=== PATIENT | female | born 1940 | race Caucasian/White ===

== ENCOUNTER → 2020-02-04 | Outpatient (CLI) | payer MEDICARE ==
--- NOTE | 2020-02-04 15:35 | P.PCN ---
Date of Procedure: 02/04/20 Preoperative Diagnosis: painful nodularity right chest wall Postoperative Diagnosis: Same Procedure(s) Performed: FNA right chest wall Surgeon: Dionne Contreras Pathology: other (Cytology) Condition: stable Disposition: same day Indications for Procedure: Nodularity right chest wall not seen on mammogram or ultrasound Operative Findings: Fibrofatty tissue Description of Procedure: Ana Maria is an 79 year old white female area of increased nodularity and pain in her right breast several months ago. On examination there was an increased area of palpable nodularity however no no discrete dominant large mass. Ultrasound of the area and a mammogram did not show any specific lesions of concern. Therefore an FNA is recommended to be performed. The risks and benefits described to the patient and she wished to proceed. The area was prepped using alcohol. 22-gauge needle on a 12 mL syringe was utilized to obtain the specimen. The needle was inserted into the area of concern in negative pressure was applied to the syringe. Several passes were obtained. The specimen was sent to pathology. The patient will follow up next week. The plan is if this is nondiagnostic related resect the palpable change in the operating room. Patient and her daughter understand.
--- NOTE | 2020-02-05 09:44 | MM ---
Reason for exam: clinical finding. History: Patient is postmenopausal. Family history of breast cancer in sister at age 54. Indicated problem(s): lump or thickening in the right breast. Physical Findings: Breast exam performed by Dr. Contreras. MG 3D Diag Mammo W/Cad ONI Bilateral CC and MLO view(s) were taken. There are scattered fibroglandular densities. Finding: There is a typically benign 4 mm high density mass in the upper outer quadrant of the right breast consistent with probable node. These results were verbally communicated with the patient and result sheet given to the patient on 02/04/20. ASSESSMENT: Probably benign, BI-RAD 3 RECOMMENDATION: Follow-up diagnostic mammogram of the right breast in 6 months.
--- NOTE | 2020-02-05 09:45 | USB ---
Reason for exam: clinical finding. History: Patient is postmenopausal. Family history of breast cancer in sister at age 54. US Breast RT Right complete breast ultrasound includes all four quadrants, the retroareolar region and axilla. Finding demonstrates a 0.3 x 0.3 x 0.1cm hypoechoic lesion at 7 o'clock, a 0.4 x 0.3 x 0.2cm hypoechoic lesion at 7 o'clock and a 0.7 x 0.6 x 0.4cm cystic lesion at 8 o'clock. These results were verbally communicated with the patient and result sheet given to the patient on 02/04/20. ASSESSMENT: Probably benign, BI-RAD 3 RECOMMENDATION: Ultrasound of the right breast in 6 months.
== END | disposition home or self-care (01) ==
LOC: RADMAMWWP 13:44
PROVIDERS: ATTEND Surgery
DX: N64.4 Mastodynia (principal); N63.11 Unspecified lump in the right breast, upper outer quadrant
CPT/HCPCS: 77066; 76641; G0279; 77062

== ENCOUNTER → 2020-02-04 | Outpatient (CLI) | payer MEDICARE ==
[2020-02-04 13:19] VITALS: BP 127/68; PULSE 75; RESP 20; TEMP 97.7
--- NOTE | 2020-02-04 13:32 | P.GSHP ---
History of Present Illness H&P Date: 02/04/20 Chief Complaint: lump in her right breast Ana Maria is an 79 year old white female who noted a lump in her right breast several months ago. She is seen in consultation for Dr. Gomez. She has not had a mammogram for several years. The lump has not increased in size. It is painful with any palpation or laying on it. She is uncertain as to whether it is on the chest wall or in the breast. Family history: sister: breast cancer Hormonal History: menarche: 13 breast fed: yes, age at first : 15 menopause: 48 BCP: 2 years hormones: none Surgical history: 1. appy 2. back surgery/sciatic nerve Medical History: 1. back pain 2. hard of hearing Social History: smoke: 1/PPD 60 years alcohol: not now, used to drink every week end drugs: none - Constitutional Constitutional: Denies chills, Denies fever - EENT Eyes: bilateral blurred vision Ears: bilateral: decreased hearing Ears, nose, mouth and throat: Denies headache, Denies sore throat - Breasts Breasts: bilateral: as per HPI - Cardiovascular Comment: ? CT/CVA Cardiovascular: Reports chest pain, Reports high blood pressure - Respiratory Comment: smoker - Gastrointestinal Gastrointestinal: Denies abdominal pain, Denies diarrhea, Denies nausea, Denies vomiting - Genitourinary (Female) Genitourinary: Denies dysuria, Denies hematuria - Menstruation Menstruation: Reports postmenopausal - Musculoskeletal Comment: back pain - Integumentary Integumentary: Denies pruritus, Denies rash - Neurological Comment: ?CVA, numbness in her feet Neurological: Denies numbness, Denies weakness - Psychiatric Psychiatric: Reports anxiety - Endocrine Endocrine: Reports fatigue, Denies weight change - Hematologic/Lymphatic Hematologic/Lymphatic: Reports as per HPI - Allergic/Immunologic Allergic/Immunologic: Reports seasonal allergies Medications and Allergies Allergies Allergy/AdvReac Type Severity Reaction Status Date / Time No Known Allergies Allergy Unverified 02/04/20 13:09 Surgical - Exam BMI 23.4 - General well developed, well nourished, no distress - Eyes normal ocular movement - ENT decreased hearing - Neck trachea midline - Respiratory normal respiratory effort, clear to auscultation - Cardiovascular Heart Sounds: normal: S1, S2 - Abdomen Well-healed scars abdomen with a subcostal scar in the left upper quadrant Abdomen: soft, non tender, no guarding, no rigid, no rebound - Integumentary normal turgor - Neurologic no disoriented, no combative - Musculoskeletal normal gait - Psychiatric oriented to time, oriented to person, oriented to place, speech is normal, memory intact breast exam: BRA: 38D inspection: Asymmetry of the breast right breast larger than the left breast, bilateral ptosis grade 3 Palpation: Right breast and multiple positional exam fibrocystic changes from the area of the upper outer quadrant but on the chest wall there is a approximately 1 cm area of increased nodularity which is tender to palpation Right axilla: Shoddy adenopathy Left breast: Multi-positional exam fibrocystic changes Left axilla: No adenopathy of concern Assessment and Plan Assessment: Impression: 1. Fibrocystic breast changes 2. Family history of breast cancer 3. Recent right chest wall/breast nodularity which is painful 4. Questionable status post CT and CVA 5. Degenerative joint/disc disease 6. Probable increased nodularity upper outer quadrant/chest wall right side 7. Decreased hearing Plan: 1. Bilateral mammogram and right breast ultrasound of the area for which patient is concerned 2. Operative removal of palpable change in right breast chest wall after mammogram and ultrasound if nothing is seen which will allow a core biopsy CC: Marquise Gomez encounter 40 minutes, > 50% of time in planning and counselling
== END | disposition home or self-care (01) ==
LOC: WWCWWP 12:59
PROVIDERS: ATTEND Surgery
DX: N63.10 Unspecified lump in the right breast, unspecified quadrant (principal)
CPT/HCPCS: 88173

== ENCOUNTER → 2020-02-09 | Outpatient (CLI) | payer MEDICARE ==
[2020-02-09 12:32] VITALS: BP 126/76; PULSE 78; RESP 16; TEMP 97.6
--- NOTE | 2020-02-09 13:27 | P.PN ---
Progress Note - Text Progress Note Date: 02/09/20 Radha is an 79 year old white female seen on 02-04-20 regarding a small nodule on her right chest wall. This was noted several months agol She had a recent mammogram and ultrasound which did not reveal anything specific on the ultrasound there was a 0.3 x 0.3 cm lesion at 7:00. And a 0.7 x 0.6 cystic lesion at 8:00. This was probably benign BIRADS 3 and ultrasound of the right breast in 6 months was recommended. The patient had an FNA of the area performed on . This was scant tissue virtually acellular additional some blood cells and adipose tissue. The patient continues to feel some slight nodularity in her chest wall that she states it is less tender than before. She tolerated the FNA without difficulty. Physical exam: Mild ecchymosis or right chest wall near area of FNA no evidence of infection Impression: 1. Small nodularity right chest wall appears cystic in nature does not appear suspicious, this is going to be followed clinically if it is persistent and will be removed after her next visit 2. Recent chest x-ray there is a fibrotic changes seen. Developing infiltrate would be difficult at the left lateral base to identify. Correlate clinically. Plan: 1. Repeat evaluation in 2 months time 2. If there is any change in the area of nodularity she should call us sooner 3. Probable excision in the operating room if the area remains persistent 4. Follow up with Dr. Gomez regarding chest x-ray changes 5. patient encouraged to stop smoking Cc: Dr. Gomez encounter 10 minutes, > 50% of time in planning and counselling
== END | disposition home or self-care (01) ==
LOC: WWCWWP 12:04
PROVIDERS: ATTEND Surgery
DX: Z53.9 Procedure and treatment not carried out, unspecified reason (principal)

== ENCOUNTER → 2020-02-09 | Outpatient (CLI) | payer MEDICARE ==
--- NOTE | 2020-02-09 13:07 | XR ---
EXAMINATION TYPE: XR chest 2V DATE OF EXAM: 02/09/2020 COMPARISON: NONE HISTORY: Shortness of breath TECHNIQUE: Frontal and lateral views of the chest are obtained. FINDINGS: Scattered senescent parenchymal changes noted. Hyperinflation compatible with COPD. Basilar fibrotic changes seen. Developing infiltrate would be difficult at the left lateral lung base . Correlate clinically. Heart size is stable. Mediastinal structures are stable and grossly unremarkable. No evidence for hilar prominence. Degenerative changes dorsal spine. IMPRESSION: 1. Basilar fibrotic changes seen. Developing infiltrate would be difficult at the left lateral lung b ase. Correlate clinically.
== END | disposition home or self-care (01) ==
LOC: RADXRMAIN 12:39
PROVIDERS: ATTEND Surgery
DX: Z53.9 Procedure and treatment not carried out, unspecified reason (principal)

== ENCOUNTER 2021-02-21 09:55 | Inpatient (IN) | payer MEDICARE ==
--- NOTE | 2021-02-21 10:26 | ED ---
General Adult HPI - General Chief complaint: Weakness Stated complaint: Fluid around heart Time Seen by Provider: 02/21/21 10:01 Source: patient Mode of arrival: wheelchair Limitations: no limitations - History of Present Illness Initial comments: Dictation was produced using [employer] dictation software. please excuse any grammatical, word or spelling errors. Chief Complaint: 80-year-old female sent to the emergency department for abn ormal echocardiogram History of Present Illness: 80-year-old female she is accompanied by a family member was able to provide history of present illness. Patient has history of cancer with metastatic disease. She had an echocardiogram performed approximately one month ago. Family just got the results that there is fluid around the heart. I did speak with literacy tutor who read the echocardiogram, Dr. Murillo. He called to let us know that he was sending in patient for evaluation. Echocardiogram from a month ago suggested that patient had signs of large pericardial effusion with perhaps mild tamponade. Patient has been feeling weak for the last several weeks. She denies any fever. She does have back pain that she reports is chronic to her lower back. The ROS documented in this emergency department record has been reviewed and confirmed by me. Those systems with pertinent positive or negative responses have been documented in the HPI. All other systems are other negative and/or noncontributory. PHYSICAL EXAM: General Impression: Alert and oriented x3, not in acute distress HEENT: Normocephalic atraumatic, extra-ocular movements intact, pupils equal and reactive to light bilaterally, mucous membranes moist. Cardiovascular: Heart regular rate and rhythm Chest: Able to complete full sentences, no retractions, no tachypnea, clear to auscultation bilaterally Abdomen: abdomen soft, non-tender, non-distended, no organomegaly Musculoskeletal: Pulses present and equal in all extremities, no peripheral edema Motor: no focal deficits noted Neurological: CN II-XII grossly intact, no focal motor or sensory deficits noted Skin: Intact with no visualized rashes Psych: Normal affect and mood ED course: 80-year-old female presents to the emergency department for abnormal echocardiogram performed 1 month ago. Allegedly there was findings of pericardial effusion with suppose it findings to suggest cardiac tamponade. Vital signs upon arrival are within acceptable limits. Patient was mildly hypoxic with 89% put on 2 L nasal cannula. Patient does not clinically this show any signs suggestive of cardiac tamponade. She has normal blood pressure. She does not appear to be in any acute distress. Furthermore this echocardiogram was allegedly performed 1 month ago. EKG interpretation: Ventricular rate 70, sinus rhythm, IA interval 110, QRS 70, QTC 419. No IA prolongation, no QTC prolongation, no ST or T-wave changes noted. Electrical alternans. Laboratory evaluation obtained. CBC, coag panel, metabolic panel is within acceptable limits. Troponin is 0.021 Chest x-ray shows moderate to severe chronic pulmonary fibrotic changes which are more prominent from prior. There is cardiomegaly with suggestion of interstitial edema. Dizziness small right pleural effusion. Concern for underlying mass. Results were discussed with patient's family member at the bedside. They know about these results and her trying to get these addressed on a more timely basis. Patient states that she feels baseline currently. Family is agreeable with admission with consultation to oncology, cardiothoracic surgery and pulmonology. Echocardiogram is ordered pending interpretation. - Related Data Home Medications Medication Instructions Recorded Confirmed Aspirin 81 mg PO QAM 02/04/20 02/21/21 Atorvastatin [Lipitor] 40 mg PO DAILY 02/04/20 02/21/21 Metoprolol Succinate [Toprol XL] 50 mg PO QAM 02/04/20 02/21/21 Albuterol Inhaler [Ventolin Hfa 1 - 2 puff INHALATION RT-QID PRN 02/21/21 02/21/21 Inhaler] Escitalopram [Lexapro] 5 mg PO DAILY 02/21/21 02/21/21 Furosemide [Lasix] 20 mg PO DAILY 02/21/21 02/21/21 Allergies Allergy/AdvReac Type Severity Reaction Status Date / Time No Known Allergies Allergy Verified 02/21/21 11:16 Review of Systems ROS Statement: Those systems with pertinent positive or pertinent negative responses have been documented in the HPI. ROS Other: All systems not noted in ROS Statement are negative. Past Medical History Additional Past Medical History / Comment(s): back pain; hard of hearing; History of Any Multi-Drug Resistant Organisms: None Reported Past Surgical History: Appendectomy Additional Past Surgical History / Comment(s): sciatic nerve surgery Past Anesthesia/Blood Transfusion Reactions: No Reported Reaction Past Psychological History: No Psychological Hx Reported Smoking Status: Former smoker Past Alcohol Use History: None Reported Past Drug Use History: None Reported General Exam Limitations: no limitations Course Vital Signs 02/21/21 02/21/21 02/21/21 09:56 10:14 10:19 Temperature 97.9 F Pulse Rate 67 102 H Pulse Rate [ Corrective Therapy Aide Teacher ] Respiratory 18 20 Rate Blood Pressure 114/71 141/78 O2 Sat by Pulse 93 L 97 98 Oximetry 02/21/21 02/21/21 02/21/21 10:25 13:00 13:57 Temperature Pulse Rate 72 74 Pulse Rate [ 74 Corrective Therapy Aide Teacher ] Respiratory 20 18 18 Rate Blood Pressure 134/56 128/69 O2 Sat by Pulse 93 L 92 L Oximetry Medical Decision Making - Lab Data Result diagrams: 02/21/21 13:06 02/21/21 13:06 Lab Results 02/21/21 02/21/21 02/21/21 Range/Units 13:06 13:06 13:06 WBC 8.2 (3.8-10.6) k/uL RBC 4.32 (3.80-5.40) m/uL Hgb 13.9 (11.4-16.0) gm/dL Hct 41.4 (34.0-46.0) % MCV 95.8 (80.0-100.0) fL MCH 32.2 (25.0-35.0) pg MCHC 33.6 (31.0-37.0) g/dL RDW 14.3 (11.5-15.5) % Plt Count 294 (150-450) k/uL MPV 8.7 Neutrophils % 79 % Lymphocytes % 11 % Monocytes % 6 % Eosinophils % 2 % Basophils % 1 % Neutrophils # 6.4 (1.3-7.7) k/uL Lymphocytes # 0.9 L (1.0-4.8) k/uL Monocytes # 0.5 (0-1.0) k/uL Eosinophils # 0.2 (0-0.7) k/uL Basophils # 0.1 (0-0.2) k/uL PT 10.5 (9.0-12.0) sec INR 1.0 (<1.2) APTT 22.7 (22.0-30.0) sec Sodium 137 (137-145) mmol/L Potassium 3.7 (3.5-5.1) mmol/L Chloride 97 L (98-107) mmol/L Carbon Dioxide 29 (22-30) mmol/L Anion Gap 11 mmol/L BUN 16 (7-17) mg/dL Creatinine 0.75 (0.52-1.04) mg/dL Est GFR (CKD-EPI)AfAm 86 (>60 ml/min/1.73 sqM) Est GFR (CKD-EPI)NonAf 75 (>60 ml/min/1.73 sqM) Glucose 102 H (74-99) mg/dL Calcium 10.8 H (8.4-10.2) mg/dL Total Bilirubin 0.7 (0.2-1.3) mg/dL AST 33 (14-36) U/L ALT 13 (4-34) U/L Alkaline Phosphatase 105 (38-126) U/L Troponin I (0.000-0.034) ng/mL Total Protein 6.7 (6.3-8.2) g/dL Albumin 3.8 (3.5-5.0) g/dL 02/21/21 Range/Units 13:06 WBC (3.8-10.6) k/uL RBC (3.80-5.40) m/uL Hgb (11.4-16.0) gm/dL Hct (34.0-46.0) % MCV (80.0-100.0) fL MCH (25.0-35.0) pg MCHC (31.0-37.0) g/dL RDW (11.5-15.5) % Plt Count (150-450) k/uL MPV Neutrophils % % Lymphocytes % % Monocytes % % Eosinophils % % Basophils % % Neutrophils # (1.3-7.7) k/uL Lymphocytes # (1.0-4.8) k/uL Monocytes # (0-1.0) k/uL Eosinophils # (0-0.7) k/uL Basophils # (0-0.2) k/uL PT (9.0-12.0) sec INR (<1.2) APTT (22.0-30.0) sec Sodium (137-145) mmol/L Potassium (3.5-5.1) mmol/L Chloride (98-107) mmol/L Carbon Dioxide (22-30) mmol/L Anion Gap mmol/L BUN (7-17) mg/dL Creatinine (0.52-1.04) mg/dL Est GFR (CKD-EPI)AfAm (>60 ml/min/1.73 sqM) Est GFR (CKD-EPI)NonAf (>60 ml/min/1.73 sqM) Glucose (74-99) mg/dL Calcium (8.4-10.2) mg/dL Total Bilirubin (0.2-1.3) mg/dL AST (14-36) U/L ALT (4-34) U/L Alkaline Phosphatase (38-126) U/L Troponin I 0.021 (0.000-0.034) ng/mL Total Protein (6.3-8.2) g/dL Albumin (3.5-5.0) g/dL Disposition Clinical Impression: Pericardial effusion, Pleural effusion Disposition: ADMITTED IP TO THIS HOSP Condition: Fair
[2021-02-21] MEDS ORDERED: NALOXONE 0.4 MG/ML 1 ML VIAL IV PRN (13:17)
[2021-02-21 13:18] LABS: Basophils # (A) 0.1 k/uL (0-0.2); Basophils % (A) 1 %; Eosinophils # (A) 0.2 k/uL (0-0.7); Eosinophils % (A) 2 %; HCT 41.4 % (34.0-46.0); HGB 13.9 gm/dL (11.4-16.0); Lymphocytes # (A) 0.9 k/uL (1.0-4.8); Lymphocytes % (A) 11 %; MCH 32.2 pg (25.0-35.0); MCHC 33.6 g/dL (31.0-37.0); MCV 95.8 fL (80.0-100.0); Mean Platelet Volume 8.7; Monocytes # (A) 0.5 k/uL (0-1.0); Monocytes % (A) 6 %; Neutrophils # (A) 6.4 k/uL (1.3-7.7); Neutrophils % (A) 79 %; Platelet Count 294 k/uL (150-450); RBC 4.32 m/uL (3.80-5.40); RDW 14.3 % (11.5-15.5); WBC 8.2 k/uL (3.8-10.6)
--- NOTE | 2021-02-21 13:22 | XR ---
EXAMINATION TYPE: XR chest 1V portable DATE OF EXAM: 02/21/2021 COMPARISON: Chest x-ray February 09, 2020 HISTORY: Abnormal echo. TECHNIQUE: Single AP portable frontal upright view of the chest is obtained. FINDINGS: The osseous structures remain demineralized. More prominent cardiomegaly with atherosclero tic thoracic aorta. Chronic reticular interstitial changes bilaterally greatest in the lung bases. Sharpe spect small right pleural effusion. New right suprahilar opacity causing left sided tracheal deviatio n. Surgical clips epigastric region noted. IMPRESSION: Moderate to severe chronic pulmonary fibrotic changes more prominent from prior. New car diomegaly with suggestion of new interstitial edema on background chronic change. New small right ple ural effusion. New right lung opacity could reflect acute infiltrate and/or atelectasis. Underlying m ass is suspected given medial right upper lung opacity causing left-sided tracheal deviation. Contras t-enhanced CT follow-up advised.
[2021-02-21 13:30] LABS: Albumin 3.8 g/dL (3.5-5.0); Calcium 10.8 mg/dL (8.4-10.2); Potassium 3.7 mmol/L (3.5-5.1); Total Bilirubin 0.7 mg/dL (0.2-1.3); Total Protein 6.7 g/dL (6.3-8.2)
[2021-02-21 13:37] LABS: Partial Thromboplastin Time 22.7 sec (22.0-30.0); Prothrombin Time 10.5 sec (9.0-12.0)
--- NOTE | 2021-02-21 18:07 | HP ---
HISTORY AND PHYSICAL DATE OF SERVICE: 02/21/2021 CHIEF COMPLAINTS: Weakness and pericardial effusion. HISTORY OF PRESENT ILLNESS: This 80-year-old woman, being followed by primary physician in the [place] area is living on [facility]. The patient had history of past history of back pain, hard of hearing. The patient is apparently recently being extensively evaluated at [facility] and [facility]. The patient apparently had lung cancer with METS in the liver and probable brain according to the daughter who is living in [place], who brought the patient to the hospital. Apparently biopsies pending by Dr. Cope in [facility]. The patient also had a PET scan. None of the records available at this time. The patient had a 2D echo with Doppler about a week ago and was evaluated by Dr. Murillo per the daughter's wishes and Dr. Murillo found significant cecal effusion and the patient was sent to [facility] Emergency Room at this time. Initially, the daughter wanted the patient to be transferred, but after ER physician, Dr. Astudillo talked to the patient, the patient's daughter wanted the patient to stay here to undergo investigations and evaluation. Currently the patient is minimally verbal, unable to give a coherent history. Most of the history is taken from my discussion staff, discussion with the daughter at the bedside and the ER physician and review the chart at this time. PAST MEDICAL HISTORY: History of back pain. Recent diagnosis of lung cancer. MEDICATIONS ARE: Lasix, Ventolin HFA, Toprol-XL. Lexapro, Lipitor, aspirin, doses reviewed. ALLERGIES: None. FAMILY HISTORY: Per chart: No history of heart disease or strokes. SOCIAL HISTORY: Previous history of smoking. REVIEW OF SYSTEMS: Could not be taken because of the patient's change in mental status and weakness. PHYSICAL EXAMINATION: Patient is conscious, confused. Pulse is 87, blood pressure 140/70, respiration 22, temperature normal. Pulse ox 94% on 2 L. HEENT exam is conjunctivae normal. NECK: No JVD. CARDIOVASCULAR: S1, S2 muffled and distant. RESPIRATION: Diminished in the bases. No rhonchi. No crackles. ABDOMEN: Soft, nontender. No mass palpable. LEGS no edema. No swelling. NERVOUS SYSTEM: Higher functions as mentioned earlier otherwise diffusely weak. LYMPHATICS: No lymph nodes palpable in the neck, axillae or groin. SKIN: No ulcer, rash or bleeding. JOINTS: No active arthropathy. The patient had pulse. There is no pulsus paradoxus. LABS: At this time shows WBC 8.2, hemoglobin 13.9, 0.9, sodium 137, potassium 3.7, calcium 10.8, glucose 102 and the chest x-ray which was reviewed personally by me showed cardiomegaly, bilateral pleural effusion, right more the left with parenchymal lesions also. The EKG shows low voltage complexes. No pulsus alternans noted. Diffuse ST-T changes. ASSESSMENT: 1. Large pericardial effusion possibly malignant secondary to lung cancer. 2. 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 3. Change in mental status, metabolic encephalopathy, acute on chronic. 4. Elevated calcium, hypercalcemia, possibly secondary to dehydration as well as secondary to malignancy. 5. History of back pain, degenerative joint disease. 6. Hard of hearing. 7. Appendectomy. 8. Sciatic nerve injury. 9. Remote history of nicotine dependence. 10.Mild protein calorie malnutrition with body mass index of 19.6. 11.FULL CODE. RECOMMENDATIONS AND DISCUSSION: In this 80-year-old woman who presented with multiple complex medical issues, we will monitor the patient closely. As mentioned earlier, we will consult cardiothoracic surgeon, cardiology and Hematology/Oncology. CT scan of the chest, abdomen and pelvis will be ordered and continue to monitor. The overall prognosis guarded because of multiple complex medical issues. We will discuss at length with the daughter and as mentioned earlier the daughter wants the patient to stay here for now and continue the current treatment and evaluations. Once again, the prognosis guarded and the daughter understands, agrees with current diagnosis and therapeutic plan. MMODL / IJN: [id number] / MTDD
--- NOTE | 2021-02-21 18:15 | CT ---
EXAMINATION TYPE: CT ChestAbdPelvis wo con DATE OF EXAM: 02/21/2021 COMPARISON: None HISTORY: Pericardial effusion. CT DLP: 355.1 mGycm Automated exposure control for dose reduction was used. Images obtained from the thoracic inlet to the floor the pelvis with no contrast. There is extensive mediastinal and bronchial adenopathy. There are paratracheal lymph nodes measuring up to 4 cm. Thoracic aorta is atheromatous. There are bilateral pleural effusions. There is bilatera l lower lobe pulmonary consolidation and atelectasis. Heart is enlarged. There is pericardial effusio n. There is coronary artery calcification. There is 5 cm subcarinal lymph node. There is 5 cm low-density area in the lateral right lobe of the liver. Spleen is intact. Abdominal ao rta is atheromatous. Upper abdominal aorta measures 2.8 cm. The stomach is intact. I see no evidence of pancreatic mass. There is no adrenal mass. Kidneys have normal size. There is no hydronephrosis. I see no significant retroperitoneal adenopathy. The bladder distends smoothly. There is no inguinal hernia. There are mul tiple sigmoid diverticula. I see no pelvic mass. There is no free fluid in the pelvis. Appendix is no t definitely seen. There is no sign of thickened appendix. There is no mesenteric edema. There is no ascites or free air. There is no bowel obstruction. There is screws fusing posteriorly the lumbar spi ne from L4 to L1. There is no lumbar compression fracture. There are spondylotic changes in the thora cic and lumbar spine. There is 10% wedging of T8 vertebra that appears old. Sternum is intact. [employer] ior multilevel laminectomy defect. I see no evidence of a rib fracture. Trachea is deviated slightly to the left side. IMPRESSION: Extensive mediastinal and bronchial adenopathy. This could relate to lymphoma. Pleural effusions and lower lobe pulmonary consolidation and atelectasis. Pericardial effusion. Congestive heart failure is possible. Atherosclerotic vascular disease. Large low density mass in the liver. Ultrasound would be helpful for further evaluation. No significa nt adenopathy seen in the abdomen and pelvis.
[2021-02-22] MEDS: SODIUM CHLORIDE 0.9% 1,000 ML IV SCH ×2 (05:15→16:49)
--- NOTE | 2021-02-22 09:01 | ECHOF ---
Referral Reason:history of pericardial effusion MEASUREMENTS -------- HEIGHT: 152.4 cm WEIGHT: 44.9 kg BP: 141/78 IVSd: 1.1 cm (0.6 - 1.1) LVIDd: 3.1 cm (3.9 - 5.3) LVPWd: 1.2 cm (0.6 - 1.1) IVSs: 1.7 cm LVIDs: 1.2 cm LVPWs: 1.4 cm FINDINGS -------- Sinus rhythm. Limited Study Left ventricular wall thickness is normal. Overall left ventricular systolic function is normal wit h, an EF between 55 - 60 %. There is a large, generalized pericardial effusion present. Large Pleural Effusion. CONCLUSIONS -------- 1. Left ventricular wall thickness is normal. 2. Overall left ventricular systolic function is normal with, an EF between 55 - 60 %. 3. There is a large, generalized pericardial effusion present. 4. Large Pleural Effusion. HAT DESIGNER: Tati Bueno [facility]
[2021-02-22] MEDS: FUROSEMIDE 20 MG TAB PO SCH (09:57)
[2021-02-22] MEDS: METOPROLOL SUCCINATE (ER) 50 MG TAB.ER.24H PO SCH (09:57)
[2021-02-22] MEDS: ATORVASTATIN 40 MG TAB PO SCH (09:57)
--- NOTE | 2021-02-22 10:17 | P.GSCN ---
History of Present Illness Consult date: 02/22/21 Reason for Consult: Pericardial effusion Requesting physician: Valentin Birmingham History of present illness: This is an 80-year-old female patient who follows on an outpatient basis with Dr. Garo Zarate She has a a previous medical history of recent diagnosis of stage IV metastatic lung cancer, previous tobacco dependence, and significant back pain. She presented to [facility] emergency room at the request of her auto winder for large globalized pericardial effusion with question of mild tamponade. Per her daughter she has had a significant decline in her physical status in the last several months with increasing weakness and debility. Chest/abdomen/pelvis CT was completed in the emergency room with evidence of extensive mediastinal and bronchial adenopathy, bilateral pleural effusions, large pericardial effusion, and large mass in the liver. Transthoracic echocardiogram was also completed demonstrating normal left ventricular systolic function with EF 55-60%, and large generalized pericardial effusion with large pleural effusion present. Initially the family was requesting transfer to [facility] as that is where the patient's primary care team practices, however they did consent to stay at [facility] for treatment of the patient's pericardial effusion. She was admitted with consultation placed to cardiology, pulmonology, oncology, and cardiothoracic surgery. Review of Systems Review of systems was completed and was negative except as noted - Constitutional Reports as per HPI, Reports chronic pain, Reports weakness Past Medical History Past Medical History: Cancer, CVA/TIA, Dementia, Hearing Disorder / Deafness, Hyperlipidemia Additional Past Medical History / Comment(s): back pain; hard of hearing; History of Any Multi-Drug Resistant Organisms: None Reported Past Surgical History: Appendectomy Additional Past Surgical History / Comment(s): sciatic nerve surgery Past Anesthesia/Blood Transfusion Reactions: No Reported Reaction Past Psychological History: No Psychological Hx Reported Smoking Status: Former smoker Past Alcohol Use History: None Reported Past Drug Use History: None Reported - Past Family History Mother Family Medical History: Dementia Sister(s) Family Medical History: Cancer Additional Family Medical History / Comment(s): breast cancer Medications and Allergies Home Medications Medication Instructions Recorded Confirmed Type Aspirin 81 mg PO QAM 02/04/20 02/21/21 History Atorvastatin [Lipitor] 40 mg PO DAILY 02/04/20 02/21/21 History Metoprolol Succinate [Toprol XL] 50 mg PO QAM 02/04/20 02/21/21 History Albuterol Inhaler [Ventolin Hfa 1 - 2 puff INHALATION RT-QID PRN 02/21/21 02/21/21 History Inhaler] Escitalopram [Lexapro] 5 mg PO DAILY 02/21/21 02/21/21 History Furosemide [Lasix] 20 mg PO DAILY 02/21/21 02/21/21 History Allergies Allergy/AdvReac Type Severity Reaction Status Date / Time No Known Allergies Allergy Verified 02/21/21 11:16 Surgical - Exam Vital Signs Temp Pulse Resp BP Pulse Ox 97.9 F 67 18 114/71 93 L 02/21/21 09:56 02/21/21 09:56 02/21/21 09:56 02/21/21 09:56 02/21/21 09:56 CONSTITUTIONAL: Awake and alert, appears comfortable, cooperative, no pain, no acute distress, appears thin EYES: Pupils equal, round, reactive to light, normal ocular movement ENT: Moist mucous membranes without oral lesions present NECK: No masses, no bruits, trachea midline RESPIRATORY: Lungs sounds diminished to auscultation bilaterally. Respirations even, nonlabored. Currently on 2 L nasal cannula with oxygen saturation 96%. CARDIOVASCULAR: S1, S2 present, heart sounds are not distant. Regular rate and rhythm, sinus rhythm on telemetry. Palpable peripheral pulses bilaterally. No edema present. GASTROINTESTINAL: Abdomen soft, nontender, nondistended without masses or organomegaly noted. There is no rebound or guarding present. Active bowel sounds present 4 quadrants. GENITOURINARY: Deferred INTEGUMENTARY: Skin is warm and dry with evidence of good perfusion. NEUROLOGIC: Cranial nerves II through XII intact, normal coordination, no obvious motor or sensory deficits, speech is normal MUSKULOSKELETAL: Able to move all extremities, strength equal bilaterally PSYCHIATRIC: Alert and oriented to person place and time, appropriate affect Results - Labs 02/21/21 13:06 02/21/21 13:06 Abnormal Lab Results - Last 24 Hours (Table) 02/21/21 02/21/21 Range/Units 13:06 13:06 Lymphocytes # 0.9 L (1.0-4.8) k/uL Chloride 97 L (98-107) mmol/L Glucose 102 H (74-99) mg/dL Calcium 10.8 H (8.4-10.2) mg/dL Diabetes panel 02/21/21 Range/Units 13:06 Sodium 137 (137-145) mmol/L Potassium 3.7 (3.5-5.1) mmol/L Chloride 97 L (98-107) mmol/L Carbon Dioxide 29 (22-30) mmol/L BUN 16 (7-17) mg/dL Creatinine 0.75 (0.52-1.04) mg/dL Glucose 102 H (74-99) mg/dL Calcium 10.8 H (8.4-10.2) mg/dL AST 33 (14-36) U/L ALT 13 (4-34) U/L Alkaline Phosphatase 105 (38-126) U/L Total Protein 6.7 (6.3-8.2) g/dL Albumin 3.8 (3.5-5.0) g/dL Calcium panel 02/21/21 Range/Units 13:06 Calcium 10.8 H (8.4-10.2) mg/dL Albumin 3.8 (3.5-5.0) g/dL Pituitary panel 02/21/21 Range/Units 13:06 Sodium 137 (137-145) mmol/L Potassium 3.7 (3.5-5.1) mmol/L Chloride 97 L (98-107) mmol/L Carbon Dioxide 29 (22-30) mmol/L BUN 16 (7-17) mg/dL Creatinine 0.75 (0.52-1.04) mg/dL Glucose 102 H (74-99) mg/dL Calcium 10.8 H (8.4-10.2) mg/dL Adrenal panel 02/21/21 Range/Units 13:06 Sodium 137 (137-145) mmol/L Potassium 3.7 (3.5-5.1) mmol/L Chloride 97 L (98-107) mmol/L Carbon Dioxide 29 (22-30) mmol/L BUN 16 (7-17) mg/dL Creatinine 0.75 (0.52-1.04) mg/dL Glucose 102 H (74-99) mg/dL Calcium 10.8 H (8.4-10.2) mg/dL Total Bilirubin 0.7 (0.2-1.3) mg/dL AST 33 (14-36) U/L ALT 13 (4-34) U/L Alkaline Phosphatase 105 (38-126) U/L Total Protein 6.7 (6.3-8.2) g/dL Albumin 3.8 (3.5-5.0) g/dL - Imaging Chest x-ray: report reviewed, image reviewed CT scan - abdomen: report reviewed, image reviewed CT scan - chest: report reviewed, image reviewed CT scan - pelvis: report reviewed, image reviewed EKG: image reviewed Additional studies: Echocardiogram reviewed Assessment and Plan Assessment: 1. Large global pericardial effusion 2. Recent diagnosis of stage IV metastatic lung cancer 3. Previous tobacco dependence 4. Chronic back pain Plan: The patient was seen and examined at the bedside. Chart/diagnostics were rev iewed. The case was discussed in detail with Dr. Jones. The case was also discussed in detail with the patient's daughter Vee by phone. Our recommendations are for pericardial window which is scheduled to be performed tomorrow by Dr. Jones. This was discussed in detail with the patient's daughter and she is agreeable. Will discuss in detail again with the patient's family and the patient when family is present. The patient should be NPO after midnight, type and screen and prophylactic OR antibiotics ordered. Medical management of other comorbidities per primary care, oncology, cardiology. More recommendations to follow. Thank you for this consult. We will follow along with you Time with Patient: Greater than 30
[2021-02-22 10:29] LABS: Appearance,Urine Cloudy (Clear); Bacteria,Urine Occasional /hpf; Bilirubin,Urine Negative (Negative); Blood,Urine Small (Negative); Calcium Oxalate Crystals,Urine Rare /hpf; Color,Urine Yellow; Glucose,Urine (UA) Negative (Negative); Ketones,Urine Negative (Negative); Leukocyte Esterase,Urine Large (Negative); Mucus,Urine Few /hpf; Nitrite,Urine Positive (Negative); PH, Urine 5.5 (5.0-8.0); Protein,Urine Trace (Negative); RBC,Urine 3 /hpf (0-5); Specific Gravity,Urine 1.017 (1.001-1.035); Squamous Epithelial Cell,Urine 6 /hpf (0-4); Urobilinogen,Urine <2.0 mg/dL (<2.0); WBC,Urine 124 /hpf (0-5)
[2021-02-22 10:57] LABS: Basophils # (A) 0.1 k/uL (0-0.2); Basophils % (A) 1 %; Eosinophils # (A) 0.1 k/uL (0-0.7); Eosinophils % (A) 2 %; HCT 43.5 % (34.0-46.0); HGB 14.4 gm/dL (11.4-16.0); Lymphocytes # (A) 0.8 k/uL (1.0-4.8); Lymphocytes % (A) 10 %; MCH 32.6 pg (25.0-35.0); MCHC 33.2 g/dL (31.0-37.0); MCV 98.2 fL (80.0-100.0); Mean Platelet Volume 8.6; Monocytes # (A) 0.6 k/uL (0-1.0); Monocytes % (A) 8 %; Neutrophils # (A) 6.5 k/uL (1.3-7.7); Neutrophils % (A) 79 %; Platelet Count 280 k/uL (150-450); RBC 4.43 m/uL (3.80-5.40); RDW 13.8 % (11.5-15.5); WBC 8.3 k/uL (3.8-10.6)
[2021-02-22 11:22] LABS: African American GFR (CKD) >90 (>60 ml/min/1.73 sqM); Anion Gap 9 mmol/L; Blood Urea Nitrogen 15 mg/dL (7-17); Calcium 10.5 mg/dL (8.4-10.2); Carbon Dioxide 26 mmol/L (22-30); Chloride 100 mmol/L (98-107); Glucose 105 mg/dL (74-99); Non-African American GFR(CKD) 85 (>60 ml/min/1.73 sqM); Sodium 135 mmol/L (137-145)
[2021-02-22 11:27] LABS: Potassium 4.1 mmol/L (3.5-5.1)
--- NOTE | 2021-02-22 12:54 | P.CRDCN ---
History of Present Illness History of present illness: HISTORY OF PRESENTING ILLNESS This is a pleasant 80-year-old female past medical history significant for COPD, hypertension, dyslipidemia, peripheral vascular disease, diastolic he art failure, lung cancer currently being evaluated at [facility] and former nicotine dependence. She recently established in the office with Dr. Hankins. He ordered an echocardiogram and a stress test. Echocardiogram was performed and read yesterday revealing preserved LV systolic function with ejection fraction 55, mild mitral regurgitation, mild to moderate tricuspid regurgitation, severe pulmonary hypertension with an RVSP of 72 mmHg and moderate circumferential pericardial effusion with mild diastolic right atrial collapse concerning for early cardiac tamponade. She was advised to come to the hospital for further evaluation. She is seen and examined resting comfortably laying flat in bed in no acute distress. She is confused and does not give much information. She does deny feeling symptoms of chest pain, shortness of breath, dizziness or palpitations. EKG on arrival reveals sinus mechanism with heart rate 70, low voltage QRS, T-wave inversion anteriorly and flat T-waves i nferiorly. Chest x-ray reveals moderate to severe chronic pulmonary fibrotic changes, new cardiomegaly with suggestion of new interstitial edema, new small right pleural effusion and new right lung opacity. CT of the chest abdomen and pelvis revealed extensive mediastinal and bronchial adenopathy, pleural effusions and lower lobe pulmonary consolidation, pericardial effusion, as prescribed vascular disease and large low-density mass in the liver. Laboratory data reviewed, CBC unremarkable, sodium 135, potassium 4.1, creatinine 0.6, troponin 0.021. Repeat limited echo reveals a large pleural effusion, large generalized pericardial effusion with preserved LV systolic function with ejection fraction 55-60%. REVIEW OF SYSTEMS At the time of my exam: CONSTITUTIONAL: Denies fever or chills. CARDIOVASCULAR: Denies chest pain, shortness of breath, orthopnea, PND or palpitations. RESPIRATORY: Denies cough. GASTROINTESTINAL: Denies abdominal pain, diarrhea, constipation, nausea or vomiting. MUSCULOSKELETAL: Denies myalgias. NEUROLOGIC: Denies numbness, tingling, headache or weakness. ENDOCRINE: Denies fatigue, weight change, polydipsia or polyurina. GENITOURINARY: Denies burning, hematuria or urgency with micturation. HEMATOLOGIC: Denies history of anemia or bleeding. PHYSICAL EXAMINATION Blood pressure 121/59 heart rate 77 afebrile and maintaining oxygen saturation on nasal cannula. CONSTITUTIONAL: No apparent distress. Frail. HEENT: Head is normocephalic. Pupils are equal, round. Sclerae anicteric. Mucous membranes of the mouth are moist. No JVD. No carotid bruit. CHEST EXAMINATION: Lungs are clear to auscultation. No chest wall tenderness is noted on palpation or with deep breathing. Diminished bilaterally. HEART EXAMINATION: Regular rate and rhythm. S1, S2 heard. No murmurs, gallops or rub. ABDOMEN: Soft, nontender. EXTREMITIES: 2+ peripheral pulses, no lower extremity edema and no calf tenderness. NEUROLOGIC EXAMINATION: Patient is awake and alert. Confused. ASSESSMENT Pericardial effusion with tamponade Lung cancer with mets COPD Hypertension Chronic diastolic heart failure Former nicotine dependence PLAN Patient scheduled to undergo pericardial window tomorrow with Dr. Jones. Encourage incentive spirometer use. Thank you kindly for this consultation. Nurse Practitioner note has been reviewed, I agree with a documented findings and plan of care. Patient was seen and examined. Past Medical History Past Medical History: CVA/TIA, Dementia, Hyperlipidemia Additional Past Medical History / Comment(s): back pain; hard of hearing; History of Any Multi-Drug Resistant Organisms: None Reported Past Surgical History: Appendectomy Additional Past Surgical History / Comment(s): sciatic nerve surgery Past Anesthesia/Blood Transfusion Reactions: No Reported Reaction Past Psychological History: No Psychological Hx Reported Smoking Status: Former smoker Past Alcohol Use History: None Reported Past Drug Use History: None Reported - Past Family History Mother Family Medical History: Dementia Sister(s) Family Medical History: Cancer Additional Family Medical History / Comment(s): breast cancer Medications and Allergies Home Medications Medication Instructions Recorded Confirmed Type Aspirin 81 mg PO QAM 02/04/20 02/21/21 History Atorvastatin [Lipitor] 40 mg PO DAILY 02/04/20 02/21/21 History Metoprolol Succinate [Toprol XL] 50 mg PO QAM 02/04/20 02/21/21 History Albuterol Inhaler [Ventolin Hfa 1 - 2 puff INHALATION RT-QID PRN 02/21/21 02/21/21 History Inhaler] Escitalopram [Lexapro] 5 mg PO DAILY 02/21/21 02/21/21 History Furosemide [Lasix] 20 mg PO DAILY 02/21/21 02/21/21 History Allergies Allergy/AdvReac Type Severity Reaction Status Date / Time No Known Allergies Allergy Verified 02/21/21 11:16 Physical Exam Vitals: Vital Signs Temp Pulse Pulse Resp BP BP Pulse Ox 02/22/21 04:00 68 18 108/66 96 02/22/21 00:00 97.9 F 79 20 127/73 96 02/21/21 21:20 98.1 F 85 22 147/84 94 L 02/21/21 19:09 76 22 121/77 97 02/21/21 18:00 95 22 135/80 92 L 02/21/21 15:31 87 22 148/78 94 L 02/21/21 13:57 74 18 128/69 92 L 02/21/21 13:00 72 18 134/56 93 L 02/21/21 10:25 74 20 02/21/21 10:19 102 H 20 141/78 98 02/21/21 10:14 97 02/21/21 09:56 97.9 F 67 18 114/71 93 L Intake and Output 02/21/21 02/22/21 02/22/21 22:59 06:59 14:59 Output Total 1 Balance -1 Output: Urine 1 Other: Voiding Method Diaper Diaper Weight 49 kg Results 02/22/21 10:08 02/22/21 10:08 Cardiac Enzymes 02/21/21 02/21/21 Range/Units 13:06 13:06 AST 33 (14-36) U/L Troponin I 0.021 (0.000-0.034) ng/mL Coagulation 02/21/21 Range/Units 13:06 PT 10.5 (9.0-12.0) sec APTT 22.7 (22.0-30.0) sec CBC 02/21/21 Range/Units 13:06 WBC 8.2 (3.8-10.6) k/uL RBC 4.32 (3.80-5.40) m/uL Hgb 13.9 (11.4-16.0) gm/dL Hct 41.4 (34.0-46.0) % Plt Count 294 (150-450) k/uL Comprehensive Metabolic Panel 02/21/21 Range/Units 13:06 Sodium 137 (137-145) mmol/L Potassium 3.7 (3.5-5.1) mmol/L Chloride 97 L (98-107) mmol/L Carbon Dioxide 29 (22-30) mmol/L BUN 16 (7-17) mg/dL Creatinine 0.75 (0.52-1.04) mg/dL Glucose 102 H (74-99) mg/dL Calcium 10.8 H (8.4-10.2) mg/dL AST 33 (14-36) U/L ALT 13 (4-34) U/L Alkaline Phosphatase 105 (38-126) U/L Total Protein 6.7 (6.3-8.2) g/dL Albumin 3.8 (3.5-5.0) g/dL Current Medications Generic Name Dose Route Start Last Admin Trade Name Freq PRN Reason Stop Dose Admin Acetaminophen 650 mg 02/21/21 13:17 Acetaminophen Tab 325 Mg Tab PO Q6HR PRN Mild Pain or Fever > 100.5 Albuterol Sulfate 2.5 mg 02/21/21 17:33 Albuterol Nebulized 2.5 Mg/3 Ml INHALATION RT-QID PRN Shortness Of Breath Atorvastatin Calcium 40 mg 02/22/21 09:00 Atorvastatin 40 Mg Tab PO DAILY GEOVANNI Furosemide 20 mg 02/22/21 09:00 Furosemide 20 Mg Tab PO DAILY GEOVANNI Sodium Chloride 1,000 mls @ 20 mls/hr 02/21/21 13:30 02/22/21 05:15 Saline 0.9% IV Not Given .Q24H GEOVANNI Metoprolol Succinate 50 mg 02/22/21 09:00 Metoprolol Succinate (Er) 50 Mg Tab.Er.24h PO QAM GEOVANNI Naloxone HCl 0.2 mg 02/21/21 13:17 Naloxone 0.4 Mg/Ml 1 Ml Vial IV Q2M PRN Opioid Reversal Intake and Output 02/21/21 02/22/21 02/22/21 22:59 06:59 14:59 Output Total 1 Balance -1 Output: Urine 1 Other: Voiding Method Diaper Diaper Weight 49 kg 02/21/21 13:06 02/21/21 13:06
--- NOTE | 2021-02-22 13:51 | P.CONS ---
History of Present Illness - Reason for Consult Consult date: 02/22/21 history of cancer Requesting physician: Valentin Birmingham - Chief Complaint metastatic cancer - sob - History of Present Illness 80 year old female presents with increased sob due to pleural and pericardial effusions, sent in by forestry support specialist. Patient's daughter called to gain oncologic history and per family they do not have definitive diagnosis or treatment plan, however believe to be lung or breast cancer and has traveled to [facility]. Review of Systems ROS unobtainable: due to mental status All systems: negative Past Medical History Past Medical History: CVA/TIA, Dementia, Hyperlipidemia Additional Past Medical History / Comment(s): back pain; hard of hearing; History of Any Multi-Drug Resistant Organisms: None Reported Past Surgical History: Appendectomy Additional Past Surgical History / Comment(s): sciatic nerve surgery Past Anesthesia/Blood Transfusion Reactions: No Reported Reaction Past Psychological History: No Psychological Hx Reported Smoking Status: Former smoker Past Alcohol Use History: None Reported Past Drug Use History: None Reported - Past Family History Mother Family Medical History: Dementia Sister(s) Family Medical History: Cancer Additional Family Medical History / Comment(s): breast cancer Medications and Allergies Home Medications Medication Instructions Recorded Confirmed Type Aspirin 81 mg PO QAM 02/04/20 02/21/21 History Atorvastatin [Lipitor] 40 mg PO DAILY 02/04/20 02/21/21 History Metoprolol Succinate [Toprol XL] 50 mg PO QAM 02/04/20 02/21/21 History Albuterol Inhaler [Ventolin Hfa 1 - 2 puff INHALATION RT-QID PRN 02/21/21 02/21/21 History Inhaler] Escitalopram [Lexapro] 5 mg PO DAILY 02/21/21 02/21/21 History Furosemide [Lasix] 20 mg PO DAILY 02/21/21 02/21/21 History Allergies Allergy/AdvReac Type Severity Reaction Status Date / Time No Known Allergies Allergy Verified 02/21/21 11:16 Physical Exam Vitals: Vital Signs Temp Pulse Pulse Resp BP BP Pulse Ox 02/22/21 11:42 97 02/22/21 08:00 97.9 F 77 17 121/59 97 02/22/21 04:00 68 18 108/66 96 02/22/21 00:00 97.9 F 79 20 127/73 96 02/21/21 21:20 98.1 F 85 22 147/84 94 L 02/21/21 19:09 76 22 121/77 97 02/21/21 18:00 95 22 135/80 92 L 02/21/21 15:31 87 22 148/78 94 L 02/21/21 13:57 74 18 128/69 92 L Intake and Output 02/21/21 02/22/21 02/22/21 22:59 06:59 14:59 Output Total 1 Balance -1 Output: Urine 1 Other: Voiding Method Diaper Diaper # Voids 1 Weight 49 kg - Constitutional General appearance: cooperative - EENT Eyes: edentulous ENT: hard of hearing - Respiratory Respiratory: bilateral: diminished - Cardiovascular Rhythm: irregularly irregular - Gastrointestinal General gastrointestinal: soft, tenderness - Integumentary Integumentary: pale - Musculoskeletal Musculoskeletal: generalized weakness - Psychiatric poor historian and comprehensive, extreme [place] Results CBC & Chem 7: 02/22/21 10:08 02/22/21 10:08 Labs: Abnormal Lab Results - Last 24 Hours (Table) 02/21/21 02/21/21 02/22/21 Range/Units 13:06 13:06 10:00 Lymphocytes # 0.9 L (1.0-4.8) k/uL Sodium (137-145) mmol/L Chloride 97 L (98-107) mmol/L Glucose 102 H (74-99) mg/dL Calcium 10.8 H (8.4-10.2) mg/dL Urine Appearance Cloudy H (Clear) Urine Protein Trace H (Negative) Urine Blood Small H (Negative) Urine Nitrite Positive H (Negative) Ur Leukocyte Esterase Large H (Negative) Urine WBC 124 H (0-5) /hpf Ur Squamous Epith Cells 6 H (0-4) /hpf Calcium Oxalate Crystal Rare H (None) /hpf Urine Bacteria Occasional H (None) /hpf Urine Mucus Few H (None) /hpf 02/22/21 02/22/21 Range/Units 10:08 10:08 Lymphocytes # 0.8 L (1.0-4.8) k/uL Sodium 135 L (137-145) mmol/L Chloride (98-107) mmol/L Glucose 105 H (74-99) mg/dL Calcium 10.5 H (8.4-10.2) mg/dL Urine Appearance (Clear) Urine Protein (Negative) Urine Blood (Negative) Urine Nitrite (Negative) Ur Leukocyte Esterase (Negative) Urine WBC (0-5) /hpf Ur Squamous Epith Cells (0-4) /hpf Calcium Oxalate Crystal (None) /hpf Urine Bacteria (None) /hpf Urine Mucus (None) /hpf Assessment and Plan (1) Metastatic cancer Current Visit: Yes Status: Acute Code(s): C79.9 - SECONDARY MALIGNANT NEOPLASM OF UNSPECIFIED SITE SNOMED Code(s): 411849251 (2) Pericardial effusion Current Visit: Yes Status: Acute Code(s): I31.3 - PERICARDIAL EFFUSION (NONINFLAMMATORY) SNOMED Code(s): 588749912 (3) Pleural effusion Current Visit: Yes Status: Acute Code(s): J90 - PLEURAL EFFUSION, NOT ELSEWHERE CLASSIFIED SNOMED Code(s): 97292991 Plan: Assessment and Recommendations: Mrs. Kingston is pleasant female who apparently is currently undergoing work-up for metastatic cancer, unknown primary at this time per family they anticipate metastatic lung cancer. They have seen Dr. Patricio Cope at [facility] for consulatation and are scheduled for biopsy next week per daughter. You can hear grand-daughter in back ground upset that nothing is happening and no one understands what is going on. I attempted to explain I was calling from the covering oncology group in to find out information from family as patient is fragile, extremely hard of hearing and a poor historian. They are upset they have not had diagnosis yet, treatment plan, or understanding of situation. I have referred them back to primary oncologist to discuss these matters, in the interim from an oncology stand point there is no acute intervention needed on our end, given she has not started treatment or obtained a definitive diagnosis. Plan: - Hospitalization per primary and cardiology - Check Ionized and PTH for hypercalcemia: Dehydration versus hypercalcemia of malignancy - Follow-up with primary oncologist after discharge, Dr. Patricio Cope at [facility] Physician Attest: I have completed the full history and physical and agree with above dictation, dictated as a scribe.
[2021-02-22 16:42] LABS: Ionized Calcium 5.3 mg/dL (4.5-5.3)
--- NOTE | 2021-02-22 17:12 | P.CNPUL ---
History of Present Illness Consult date: 02/22/21 Requesting physician: Valentin Birmingham Reason for consult: dyspnea, hypoxemia, pleural effusion, abnormal CXR/CT, other Chief complaint: Pericardial effusion, metastatic malignancy, will effusion History of present illness: This is a 80-year-old white female patient with past medical history of smoking, previous history of CVA, dementia, hyperlipidemia, chronic back pain, difficulty hearing, who presented to the emergency department with her daughter on all 02/21/2021 from the [facility], being sent in by Dr. Murillo who found a significant pericardial effusion. Patient is apparently recently being extensively evaluated at the [facility] by medical oncology. Patient apparently had lung cancer with metastasis in the liver and probable brain according to the daughter. Dr. Cope at [facility] have taken biopsies and the results are not known to us at this time. Patient had a PET scan, and the results are not known to us. Patient is a poor historian. Her daughter initially wanted the patient to go back to Dr. Cope at the [facility] however she later changed her mind and decided to stay and get evaluated and treated at this hospital. Her chest x-ray shows moderate to severe chronic pulmonary fibrotic changes, new cardiomegaly, with suggestion of new interstitial edema, new small right pleural effusion possible acute right lung infiltrate and/or atelectasis, underlying mass was suspected, causing left-sided tracheal deviation. CT of the chest abdomen and pelvis without contrast showed extensive mediastinal and bronchial adenopathy, pleural effusions and lower lobe pulmonary consolidation and atelectasis, there was pericardial effusion, possibility of CHF was also considered, there was a large low density mass in the liver and ultrasound of the liver was recommended. There was no significant adenopathy seen in the abdomen or pelvis. Echocardiogram showed normal LV function with an EF of 55-60%, and a large generalized pericardial effusion. Patient's labs were reviewed, white blood cell count was normal at 8.2, hemoglobin is 13.9, platelet count is 294, lymphocyte count is 0.9, INR is 1.0, electrolytes are unremarkable, renal function is within normal limits. Troponin is 0.021, LFTs were within normal limits, urinalysis showed positive nitrites, large leuks, and 124 of white blood cells suggesting presence of urinary tract infection. Patient has been started on Rocephin. She is breathing fairly comfortably, she is currently on 2 L of oxygen and a pulse ox of 94-97%, her vitals are stable, blood pressure is 109/54. She is afebrile. EKG showed sinus rhythm, T-wave inversion in anterior leads. CT surgery has been consulted for possibility of pericardiocentesis or pericardial window. Patient has been scheduled for pericardial window tomorrow on 02/23/2021. She is currently breathing fairly comfortably, she is on 2 L of oxygen pulse ox is 94%. Review of Systems All systems: negative Constitutional: Denies chills, Denies fever Eyes: denies blurred vision, denies pain Ears, nose, mouth and throat: Denies headache, Denies sore throat Cardiovascular: Denies chest pain, Denies shortness of breath Respiratory: Reports dyspnea, Denies cough Gastrointestinal: Denies abdominal pain, Denies diarrhea, Denies nausea, Denies vomiting Genitourinary: Denies dysuria, Denies hematuria Musculoskeletal: Denies myalgias Integumentary: Denies pruritus, Denies rash Neurological: Denies numbness, Denies weakness Psychiatric: Denies anxiety, Denies depression Endocrine: Denies fatigue, Denies weight change Past Medical History Past Medical History: CVA/TIA, Dementia, Hyperlipidemia Additional Past Medical History / Comment(s): back pain; hard of hearing; History of Any Multi-Drug Resistant Organisms: None Reported Past Surgical History: Appendectomy Additional Past Surgical History / Comment(s): sciatic nerve surgery Past Anesthesia/Blood Transfusion Reactions: No Reported Reaction Past Psychological History: No Psychological Hx Reported Smoking Status: Former smoker Past Alcohol Use History: None Reported Past Drug Use History: None Reported - Past Family History Mother Family Medical History: Dementia Sister(s) Family Medical History: Cancer Additional Family Medical History / Comment(s): breast cancer Medications and Allergies Home Medications Medication Instructions Recorded Confirmed Type Aspirin 81 mg PO QAM 02/04/20 02/21/21 History Atorvastatin [Lipitor] 40 mg PO DAILY 02/04/20 02/21/21 History Metoprolol Succinate [Toprol XL] 50 mg PO QAM 02/04/20 02/21/21 History Albuterol Inhaler [Ventolin Hfa 1 - 2 puff INHALATION RT-QID PRN 02/21/21 02/21/21 History Inhaler] Escitalopram [Lexapro] 5 mg PO DAILY 02/21/21 02/21/21 History Furosemide [Lasix] 20 mg PO DAILY 02/21/21 02/21/21 History Allergies Allergy/AdvReac Type Severity Reaction Status Date / Time No Known Allergies Allergy Verified 02/21/21 11:16 Physical Exam Vitals: Vital Signs Temp Pulse Pulse Resp BP BP Pulse Ox 02/22/21 12:00 98.0 F 70 19 109/54 94 L 02/22/21 11:42 97 02/22/21 08:00 97.9 F 70 19 121/59 97 02/22/21 04:00 68 18 108/66 96 02/22/21 00:00 97.9 F 79 20 127/73 96 02/21/21 21:20 98.1 F 85 22 147/84 94 L 02/21/21 19:09 76 22 121/77 97 02/21/21 18:00 95 22 135/80 92 L Intake and Output 02/22/21 02/22/21 02/22/21 06:59 14:59 22:59 Other: Voiding Method Diaper Bedpan Diaper Incontinent # Voids 1 Weight 49 kg GENERAL EXAM: Alert, 80-year-old frail looking white female, resting comfortably in bed, on 2 L of oxygen comfortable in no apparent distress. HEAD: Normocephalic/atraumatic. EYES: Normal reaction of pupils, equal size. Conjunctiva pink, sclera white. NOSE: Clear with pink turbinates. THROAT: No erythema or exudates. NECK: No masses, no JVD, no thyroid enlargement, no adenopathy. CHEST: No chest wall deformity. Symmetrical expansion. LUNGS: Equal air entry with diminished breath sounds at bilateral bases CVS: Regular rate and rhythm, normal S1 and S2, no gallops, no murmurs, no rubs ABDOMEN: Soft, nontender. No hepatosplenomegaly, normal bowel sounds, no guarding or rigidity. EXTREMITIES: No clubbing, no edema, no cyanosis, 2+ pulses and upper and lower extremities. MUSCULOSKELETAL: Muscle strength and tone normal. SPINE: No scoliosis or deformity SKIN: No rashes CENTRAL NERVOUS SYSTEM: Alert and oriented -2. No focal deficits, tone is normal in all 4 extremities. PSYCHIATRIC: Alert and oriented -2. Appropriate affect. Intact judgment and insight. Results - Laboratory Findings CBC and BMP: 02/22/21 10:08 02/22/21 10:08 PT/INR, D-dimer PT 10.5 sec (9.0-12.0) 02/21/21 13:06 INR 1.0 (<1.2) 02/21/21 13:06 Abnormal lab findings: Abnormal Labs 02/21/21 02/21/21 02/22/21 13:06 13:06 10:00 Lymphocytes # 0.9 L Sodium Chloride 97 L Glucose 102 H Calcium 10.8 H Urine Appearance Cloudy H Urine Protein Trace H Urine Blood Small H Urine Nitrite Positive H Ur Leukocyte Esterase Large H Urine WBC 124 H Ur Squamous Epith Cells 6 H Calcium Oxalate Crystal Rare H Urine Bacteria Occasional H Urine Mucus Few H 02/22/21 02/22/21 10:08 10:08 Lymphocytes # 0.8 L Sodium 135 L Chloride Glucose 105 H Calcium 10.5 H Urine Appearance Urine Protein Urine Blood Urine Nitrite Ur Leukocyte Esterase Urine WBC Ur Squamous Epith Cells Calcium Oxalate Crystal Urine Bacteria Urine Mucus - Diagnostic Findings Chest x-ray: report reviewed, image reviewed CT scan - chest: report reviewed, image reviewed Additional studies: EKG reviewed Assessment and Plan Plan: Assessment: #1. Lung cancer, with metastasis, currently undergoing evaluation at the [facility]. Patient had biopsies and the PET scan there, the records are not available to us at this time #2. Generalized pericardial effusion, patient is scheduled for pericardial window tomorrow on 02/23/2021 #3. Bilateral pleural effusions, extensive mediastinal and bronchial adenopathy related to underlying history of metastatic lung cancer #4. Former smoker #5. Hypertension #6. Dyslipidemia #7. Peripheral vascular disease #8. Diastolic heart failure #9. Dementia #10. History of CVA/TIA Plan: CT of the chest abdomen and pelvis reviewed Patient is scheduled for pericardial window tomorrow and the fluid will be sent for cytology We will need to obtain records from the [facility] CT of the chest shows bilateral pleural effusions, and extensive mediastinal adenopathy, and liver metastases Await results of the pericardial fluid cytology Evidence of acute respiratory distress, vital signs are stable We'll continue to follow I performed a history & physical examination of the patient and discussed their management with my nurse practitioner, Michelle Rosado. I reviewed the nurse practitioner's note and agree with the documented findings and plan of care. Lung sounds are positive for diminished breath sounds throughout the lung ladd. The findings and the impression was discussed with the patient. I attest to the documentation by the nurse practitioner. Time with Patient: Greater than 30
--- NOTE | 2021-02-22 19:03 | PN ---
PROGRESS NOTE DATE OF SERVICE: 02/22/2021 This 80-year-old woman who was admitted with significant weakness and pericardial effusion also had significant weakness. The patient had possibly lung cancer with METS. The patient did not have any biopsy confirmation yet. The patient followed at [facility]. Cardiothoracic surgery was planning pericardial window at this time. Multiple consultants following the patient closely. PAST MEDICAL HISTORY: Reviewed. REVIEW OF SYSTEMS: Could not be taken. The patient is weak and mildly confused. CURRENT MEDICATIONS: Reviewed and include Tylenol, Ventolin, Lipitor, cefazolin preop, Toprol-XL. Dose are noted. PHYSICAL EXAMINATION: Patient is alert, oriented times two. Pulse 70. Blood pressure 109/54, respiration 19, temperature 98 degrees, pulse ox 94% on 2 L. HEENT: Conjunctivae normal. Neck: No JVD. Cardiovascular system: S1, S2 muffled. Respiration: Breath sounds diminished in the bases. A few scattered rhonchi. Abdomen: Soft. Nontender. Nervous system: Diffusely weak. LABS: Sodium 135, calcium is 10.5. UA shows possible UTI. ASSESSMENT: 1. Large pericardial effusion possibly malignancy secondary to lung cancer for pericardial window. 2. Possible acute urinary tract infection with sepsis present on admission. 3. Change in mental status, acute metabolic encephalopathy, multifactorial. 4. 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 5. Elevated calcium, hypercalcemia, possibly secondary to dehydration as well as secondary to malignancy. 6. History of back pain, degenerative joint disease. 7. Hard of hearing. 8. Appendectomy. 9. Sciatic nerve injury. 10.Remote history of nicotine dependence. 11.Mild protein calorie malnutrition with body mass index of 19.6. 12.Extensive mediastinal and bronchial adenopathy in the CT scan. 13.Bilateral pleural effusion and atelectasis. 14.Liver mass in the CT scan. RECOMMENDATIONS AND DISCUSSION: I recommend to continue current medications, symptomatic treatment. I would recommend add broad-spectrum IV antibiotics. Resume the home medications. Otherwise, closely follow with multiple consultants. Symptomatic treatment. Prognosis guarded because of multiple complex medical issues. Closely follow with Hematology/Oncology and Cardiothoracic surgery, Cardiology and Pulmonology. Prognosis guarded. Further recommendations to follow. Discussed with the family. MMODL / IJN: [id number] /
[2021-02-23] MEDS: ALBUTEROL NEBULIZED 2.5 MG/3 ML INHALATION PRN (02:57)
[2021-02-23 04:18] LABS: Cancer Antigen 153 8.2 U/mL (0.0-32.3)
[2021-02-23 09:27] LABS: ALT 10 U/L (4-34); AST 26 U/L (14-36); African American GFR (CKD) >90 (>60 ml/min/1.73 sqM); Albumin 3.1 g/dL (3.5-5.0); Alkaline Phosphatase 94 U/L (38-126); Anion Gap 7 mmol/L; Blood Urea Nitrogen 13 mg/dL (7-17); Calcium 10.2 mg/dL (8.4-10.2); Carbon Dioxide 31 mmol/L (22-30); Chloride 96 mmol/L (98-107); Glucose 105 mg/dL (74-99); Non-African American GFR(CKD) 81 (>60 ml/min/1.73 sqM); Sodium 134 mmol/L (137-145); Total Bilirubin 0.5 mg/dL (0.2-1.3); Total Protein 5.8 g/dL (6.3-8.2)
[2021-02-23] MEDS ORDERED: Potassium Replacement Protocol 1 EACH MISC MISCELLANE PRN (10:40)
[2021-02-23] MEDS: FUROSEMIDE 20 MG TAB PO SCH (10:41)
[2021-02-23] MEDS: POTASSIUM CHLORIDE 10 MEQ in WATER FOR INJECTION 1 100ML.BAG IVPB SCH ×4 (11:04→20:30)
[2021-02-23] MEDS ORDERED: IV FLUID CONTINUATION 1,000 ML IV ONE (12:43)
[2021-02-23 12:49] LABS: Basophils # (A) 0.1 k/uL (0-0.2); Basophils % (A) 1 %; Eosinophils # (A) 0.2 k/uL (0-0.7); Eosinophils % (A) 3 %; HCT 40.1 % (34.0-46.0); HGB 13.2 gm/dL (11.4-16.0); Lymphocytes # (A) 0.7 k/uL (1.0-4.8); Lymphocytes % (A) 11 %; MCH 33.2 pg (25.0-35.0); MCHC 32.9 g/dL (31.0-37.0); MCV 100.7 fL (80.0-100.0); Macrocytosis Slight; Mean Platelet Volume 9.8; Monocytes # (A) 0.5 k/uL (0-1.0); Monocytes % (A) 8 %; Neutrophils # (A) 4.6 k/uL (1.3-7.7); Neutrophils % (A) 75 %; Platelet Count 271 k/uL (150-450); RBC 3.98 m/uL (3.80-5.40); RDW 14.7 % (11.5-15.5); WBC 6.1 k/uL (3.8-10.6)
[2021-02-23] MEDS ORDERED: GLYCOPYRROLATE 0.2 MG/ML 2 ML VIAL ONE (14:37)
[2021-02-23] MEDS ORDERED: PHENYLEPHRINE-0.9% NACL SYG 1,000 MCG/10 ML SYRINGE ONE (14:37)
[2021-02-23] MEDS ORDERED: SUCCINYLCHOLINE CHLORIDE 100 MG/5 ML SYR IV ONE (14:37)
[2021-02-23] MEDS ORDERED: fentaNYL (PF) 50 MCG/ML 2 ML AMP ONE (14:37)
[2021-02-23] MEDS ORDERED: NEOSTIGMINE 1 MG/ML 10 ML VIAL ONE (14:37)
[2021-02-23] MEDS ORDERED: PROPOFOL 10 MG/ML 20 ML VIAL IV ONE (14:37)
[2021-02-23] MEDS ORDERED: ROCURONIUM 10 MG/ML (5 ML VIAL) IV ONE (14:37)
[2021-02-23] MEDS ORDERED: KETAMINE 10 MG/ML 20 ML VIAL ONE (14:37)
[2021-02-23] MEDS ORDERED: LIDOCAINE 1% INJ 10MG/ML (20 ML MDV) ONE (14:37)
[2021-02-23] MEDS ORDERED: MIDAZOLAM 2 MG/2 ML VIAL ONE (14:37)
--- NOTE | 2021-02-23 15:13 | P.PN ---
Subjective Progress Note Date: 02/23/21 Principal diagnosis: Bilateral pleural effusions, pericardial effusion, metastatic lung cancer This is a 80-year-old white female patient with past medical history of smoking, previous history of CVA, dementia, hyperlipidemia, chronic back pain, difficulty hearing, who presented to the emergency department with her daughter on all 02/21/2021 from the [facility], being sent in by Dr. Murillo who found a significant pericardial effusion. Patient is apparently recently being extensively evaluated at the [facility] by medical oncology. Patient apparently had lung cancer with metastasis in the liver and probable brain according to the daughter. Dr. Cope at [facility] have taken biopsies and the results are not known to us at this time. Patient had a PET scan, and the results are not known to us. Patient is a poor historian. Her daughter initially wanted the patient to go back to Dr. Cope at the [facility] however she later changed her mind and decided to stay and get evaluated and treated at this hospital. Her chest x-ray shows moderate to severe chronic pulmonary fibrotic changes, new cardiomegaly, with suggestion of new interstitial edema, new small right pleural effusion possible acute right lung infiltrate and/or atelectasis, underlying mass was suspected, causing left-sided tracheal deviation. CT of the chest abdomen and pelvis without contrast showed extensive mediastinal and bronchial adenopathy, pleural effusions and lower lobe pulmonary consolidation and atelectasis, there was pericardial effusion, possibility of CHF was also considered, there was a large low density mass in the liver and ultrasound of the liver was recommended. There was no significant adenopathy seen in the abdomen or pelvis. Echocardiogram showed normal LV function with an EF of 55-60%, and a large generalized pericardial effusion. Patient's labs were reviewed, white blood cell count was normal at 8.2, hemoglobin is 13.9, platelet count is 294, lymphocyte count is 0.9, INR is 1.0, electrolytes are unremarkable, renal function is within normal limits. Troponin is 0.021, LFTs were within normal limits, urinalysis showed positive nitrites, large leuks, and 124 of white blood cells suggesting presence of urinary tract infection. Patient has been started on Rocephin. She is breathing fairly comfortably, she is currently on 2 L of oxygen and a pulse ox of 94-97%, her vitals are stable, blood pressure is 109/54. She is afebrile. EKG showed sinus rhythm, T-wave inversion in anterior leads. CT surgery has been consulted for possibility of pericardiocentesis or pericardial window. Patient has been scheduled for pericardial window tomorrow on 02/23/2021. She is currently breathing fairly comfortably, she is on 2 L of oxygen pulse ox is 94%. On 02/23/2021 patient seen in follow-up on selective care unit. She is resting comfortably in bed, she is extremely hard of hearing, but appears to be no acute distress, she denies any dyspnea, denies any chest discomfort. She was sleeping comfortably only came in for evaluation, upon awakening, she is alert and pleasant, she denies any specific complaints, she is breathing comfortably, no use of accessory muscles noted, vital signs have been stable overnight, she is on 2 L of oxygen with a pulse ox of 93%. No fever or chills, blood pressure is stable, currently 121/75. Patient was started on antibiotics for possibility of urinary tract infection, today's labs have been reviewed. White count is 6.1, hemoglobin is 13.2, sodium is 134, potassium is 3.0, chloride is 96, CO2 is 31, BUN is 13 and creatinine 0.70, patient has been nothing by mouth for surgical intervention and placement of pericardial window today. Patient is in sinus mechanism, she is not on any vasopressor support, she is on IV fluids with 0.9 normal saline at a rate of 20 ML per hour. Objective - Vital Signs Vital signs: Vital Signs Temp 97.5 F L 02/23/21 12:29 Pulse 83 02/23/21 12:29 Resp 20 02/23/21 12:29 BP 148/70 02/23/21 12:29 Pulse Ox 93 L 02/23/21 12:29 Intake & Output 02/22/21 02/23/21 02/23/21 18:59 06:59 18:59 Intake Total 510 100 Balance 510 100 Weight 51 kg 51 kg Intake: Intake, IV Titration 270 100 Amount Sodium Chloride 0.9% 1, 220 000 ml @ 20 mls/hr IV . Q24H GEOVANNI Rx#:[id number] cefTRIAXone 1 gm In 50 100 Sodium Chloride 0.9% 50 ml @ 100 mls/hr IVPB Q24HR GEOVANNI Rx#:[id number] Oral 240 Other: Voiding Method Bedpan Bedpan Bedpan Diaper Diaper Diaper Incontinent Incontinent Incontinent # Voids 3 4 - Exam GENERAL EXAM: Alert, 80-year-old frail looking white female, resting comfortably in bed, on 2 L of oxygen comfortable in no apparent distress. HEAD: Normocephalic/atraumatic. EYES: Normal reaction of pupils, equal size. Conjunctiva pink, sclera white. NOSE: Clear with pink turbinates. THROAT: No erythema or exudates. NECK: No masses, no JVD, no thyroid enlargement, no adenopathy. CHEST: No chest wall deformity. Symmetrical expansion. LUNGS: Equal air entry with diminished breath sounds at bilateral bases CVS: Regular rate and rhythm, normal S1 and S2, no gallops, no murmurs, no rubs ABDOMEN: Soft, nontender. No hepatosplenomegaly, normal bowel sounds, no guarding or rigidity. EXTREMITIES: No clubbing, no edema, no cyanosis, 2+ pulses and upper and lower extremities. MUSCULOSKELETAL: Muscle strength and tone normal. SPINE: No scoliosis or deformity SKIN: No rashes CENTRAL NERVOUS SYSTEM: Alert and oriented -2. No focal deficits, tone is normal in all 4 extremities. PSYCHIATRIC: Alert and oriented -2. Appropriate affect. Intact judgment and insight. - Labs CBC & Chem 7: 02/23/21 08:46 02/23/21 08:46 Labs: Abnormal Lab Results - Last 24 Hours (Table) 02/23/21 02/23/21 Range/Units 08:46 08:46 MCV 100.7 H (80.0-100.0) fL Lymphocytes # 0.7 L (1.0-4.8) k/uL Sodium 134 L (137-145) mmol/L Potassium 3.0 L (3.5-5.1) mmol/L Chloride 96 L (98-107) mmol/L Carbon Dioxide 31 H (22-30) mmol/L Glucose 105 H (74-99) mg/dL Total Protein 5.8 L (6.3-8.2) g/dL Albumin 3.1 L (3.5-5.0) g/dL Assessment and Plan Plan: Assessment: #1. Lung cancer, with metastasis, currently undergoing evaluation at the [facility]. Patient had biopsies and the PET scan there, the records are not available to us at this time #2. Generalized pericardial effusion, patient is scheduled for pericardial window tomorrow on 02/23/2021 #3. Bilateral pleural effusions, extensive mediastinal and bronchial adenopathy related to underlying history of metastatic lung cancer #4. Former smoker #5. Hypertension #6. Dyslipidemia #7. Peripheral vascular disease #8. Diastolic heart failure #9. Dementia #10. History of CVA/TIA Plan: No worsening dyspnea Hemodynamically stable, Awaiting pericardial fluid cytology Requested records from [facility] May consider bronchoscopy with biopsies for thoracentesis for diagnosis if pericardial cytology is nondiagnostic I performed a history & physical examination of the patient and discussed their management with my nurse practitioner, Michelle Rosado. I reviewed the nurse practitioner's note and agree with the documented findings and plan of care. Lung sounds are positive for diminished breath sounds throughout the lung ladd. The findings and the impression was discussed with the patient. I attest to the documentation by the nurse practitioner. Time with Patient: Less than 30
--- NOTE | 2021-02-23 15:27 | P.ANPRN ---
Procedure Note - Anesthesia - Invasive Line Left Arterial Line Time Out Performed: Yes ([id number]) Date of Procedure: 02/23/21 Time of Procedure: 12:39 Location of Patient: PreOp Preparation: Sterile Prep, Sterile Dressing Arterial Line Location: Radial Ultrasound Used: Yes Purpose - Visualization and Identification of Vasculature: Yes Needle Guage: 20g Image Stored and Saved: Yes Narrative: Central line placement per sterile protocol utilized.
[2021-02-23] MEDS ORDERED: SUGAMMADEX SODIUM 500 MG/5 ML SDV IV ONE (15:51)
[2021-02-23] MEDS ORDERED: SODIUM CHLORIDE 0.9% 1,000 ML IV ONE (16:37)
[2021-02-23] MEDS: METOPROLOL SUCCINATE (ER) 50 MG TAB.ER.24H PO SCH (17:04)
[2021-02-23] MEDS: ATORVASTATIN 40 MG TAB PO SCH (17:04)
[2021-02-23] MEDS: SODIUM CHLORIDE 0.9% 1,000 ML IV SCH (17:04)
[2021-02-23] MEDS: ACETAMINOPHEN TAB 325 MG TAB PO PRN (17:30)
--- NOTE | 2021-02-23 20:01 | PN ---
PROGRESS NOTE DATE OF SERVICE: 02/23/2021 This 80-year-old woman who was admitted with large pericardial effusion is planned to have a pericardial window and also bronchoscopy today. No chest pain. No palpitations. No fever. PHYSICAL EXAMINATION: Alert and oriented x1. Pulse 64, blood pressure 127/72, respirations 20, temperature normal. Pulse ox 92% on 3 L. HEENT: Conjunctivae normal. Neck: No JVD. Cardiovascular: S1, S2 muffled. Respirations: Breath sounds diminished in the bases. Scattered rhonchi. Abdomen soft. Nervous system: No focal deficits. LABS: Sodium 130, potassium 3, UA noted, UTI. ASSESSMENT: 1. Large pericardial effusion possibly malignant secondary to lung cancer for pericardial window. 2. Possible acute urinary tract infection with sepsis present on admission. 3. Change in mental status acute metabolic encephalopathy multifactorial. 4. 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 5. Elevated calcium, hypercalcemia, possibly secondary to dehydration as well as malignancy. 6. History of back pain, degenerative joint disease. 7. Hard of hearing. 8. Appendectomy. 9. Sciatic nerve injury. 10.Remote history of nicotine dependence. 11.Mild protein calorie malnutrition with body mass index 19.6. 12.Extensive mediastinal bronchial adenopathy in the CT scan. 13.Bilateral pleural effusion, atelectasis. 14.Liver mass in the CT scan. RECOMMENDATIONS AND DISCUSSION: Recommend to continue current medications, continue with monitoring and symptomatic treatment. Otherwise, at this time, I would recommend continue the antibiotics. Continue with pericardial window. Closely follow with Dr. Goldsmith. Guarded prognosis because of multiple complex medical issues. Further recommendations to follow. MMODL / IJN: [id number] /
--- NOTE | 2021-02-23 21:13 | OP ---
OPERATIVE REPORT DATE OF THE OPERATION: 02/23/2021. ATTENDING SURGEON: Dr. Aj Jones. PREOP DIAGNOSIS: Large pericardial effusion with mediastinal mass. POSTOPERATIVE DIAGNOSIS: Large pericardial effusion with mediastinal mass. PROCEDURE: Subxiphoid pericardial window. ANESTHESIA: General. BLOOD LOSS: About 50 mL. DESCRIPTION OF PROCEDURE: The patient was taken the operating room, placed in supine position. After administration of a general endotracheal anesthetic, placement of arterial line, adequate IV access, the chest and abdomen were prepped and draped in normal sterile fashion using chlorhexidine paint and sterile towels. A 3 cm vertical incision was made over the xiphoid and carried down. Dissection was carried down and the linea alba was divided. The subxiphoid space was dissected. Pericardium identified. An opening in the pericardium made approximately 400 mL of straw-colored fluid was removed. A piece of pericardium the size of a quarter was excised and both specimens were sent to pathology for complete analysis, cell count, cytology, culture. #[id number]-[id number] right angle chest tube was placed along the diaphragmatic surface of the pericardium and brought out through a separate stab incision. The incision then closed in 3 layers. Wound glue was applied and the patient was then taken to the recovery room in stable condition. MMODL / IJN: [id number] /
[2021-02-24] MEDS: POTASSIUM CHLORIDE 10 MEQ in WATER FOR INJECTION 1 100ML.BAG IVPB SCH ×2 (00:54→01:01)
[2021-02-24 01:58] LABS: Glucose, Body Fluid 94 mg/dL; Total Protein, Body Fluid 3820 mg/dL
--- NOTE | 2021-02-24 07:16 | XR ---
EXAMINATION TYPE: XR chest 1V portable DATE OF EXAM: 02/24/2021 CLINICAL HISTORY: Difficulty breathing progress study. Post pericardiac window. TECHNIQUE: Single AP portable upright view of the chest is obtained. COMPARISON: Chest x-ray and CT from 3 days earlier FINDINGS: Background chronic emphysematous and pulmonary fibrotic change redemonstrated. Persistent c ardiomegaly with atherosclerotic thoracic aorta. Persistent right greater than left bibasilar opaciti es. Persistent abnormal right peritracheal soft tissue density corresponding to large mediastinal mas s causing left-sided tracheal deviation. Osseous structures are demineralized. Partial visualization of surgical change in the lumbar spine. Multiple surgical clips left midabdomen redemonstrated. Overl yifan inferior pleural drainage catheter noted. IMPRESSION: Cardiomegaly with small bilateral pleural effusions and right greater than left bibasilar acute atelectasis and/or infiltrate redemonstrated. Persistent right paratracheal mass with local ma ss effect. Background chronic emphysematous and pulmonary fibrotic changes. No significant change fro m recent prior studies.
[2021-02-24] MEDS: ALBUTEROL NEBULIZED 2.5 MG/3 ML INHALATION PRN (08:28)
[2021-02-24 08:36] LABS: HGB 13.8 gm/dL (11.4-16.0); MCH 32.1 pg (25.0-35.0); MCHC 32.7 g/dL (31.0-37.0); MCV 98.2 fL (80.0-100.0); Platelet Count 258 k/uL (150-450); RBC 4.28 m/uL (3.80-5.40); RDW 13.5 % (11.5-15.5)
[2021-02-24 08:59] LABS: Calcium 9.6 mg/dL (8.4-10.2); Potassium 3.9 mmol/L (3.5-5.1)
[2021-02-24] MEDS: ATORVASTATIN 40 MG TAB PO SCH (09:19)
[2021-02-24] MEDS: FUROSEMIDE 20 MG TAB PO SCH (09:19)
[2021-02-24] MEDS: METOPROLOL SUCCINATE (ER) 50 MG TAB.ER.24H PO SCH (09:19)
[2021-02-24] MEDS: ACETAMINOPHEN TAB 325 MG TAB PO PRN ×2 (09:20→18:31)
--- NOTE | 2021-02-24 09:35 | P.PN ---
Subjective Progress Note Date: 02/24/21 Principal diagnosis: Large pericardial effusion with mediastinal mass. Recent suspected diagnosis of stage IV metastatic lung cancer, previous tobacco dependence, chronic back pain POD #1 subxiphoid pericardial window with removal of 400 mL straw-colored fluid which was sent for pathology and culture The patient was seen and examined this morning on the cardiac stepdown unit. She appears comfortable and in no distress. States she feels a little better. Denies pain or shortness of breath. Remains on 3 L nasal cannula. Mediastinal chest tube present with 300 mL serous drainage since surgery yesterday. Daughter updated daily. Objective - Vital Signs Vital signs: Vital Signs Temp 97.7 F 02/24/21 08:35 Pulse 80 02/24/21 08:36 Resp 18 02/24/21 08:36 BP 104/70 02/24/21 08:35 Pulse Ox 96 02/24/21 08:35 Intake & Output 02/23/21 02/24/21 02/24/21 18:59 06:59 18:59 Intake Total 1025 20 Output Total 5 300 Balance 1020 -280 Weight 51 kg Intake: IV 925 20 Invasive Line 1 20 Intake, IV Titration 100 Amount cefTRIAXone 1 gm In 100 Sodium Chloride 0.9% 50 ml @ 100 mls/hr IVPB Q[facility]HR [facility] Rx#:[id number] Output: Chest Tube Drainage 300 Chest Tube Mediastinal 300 Estimated Blood Loss 5 Other: Voiding Method Bedpan Bedpan Diaper Diaper Incontinent Incontinent # Voids 1 - Exam CONSTITUTIONAL: Appears comfortable, cooperative, no acute distress RESPIRATORY: Lungs sounds diminished bilaterally. Respirations even, nonlabored. Currently on 3 L nasal cannula with oxygen saturation 97% %. CARDIOVASCULAR: S1, S2 present. Regular rate and rhythm, sinus rhythm on telemetry. Palpable peripheral pulses bilaterally. No edema present. GASTROINTESTINAL: Abdomen soft, nontender, nondistended. Active bowel sounds present 4 quadrants. GENITOURINARY: Continues to void, incontinent INTEGUMENTARY: Skin is warm and dry with evidence of good perfusion. NEUROLOGIC: Cranial nerves II through XII intact MUSKULOSKELETAL: Able to move all extremities, strength equal bilaterally PSYCHIATRIC: Alert and oriented to person place and time, appropriate affect INVASIVE LINES AND TUBES: Mediastinal tube present to waterseal, no air leaks present, 300 mL serous drainage since procedure. - Allied health notes Allied health notes reviewed: nursing - Labs CBC & Chem 7: 02/24/21 08:06 02/24/21 08:06 Labs: Abnormal Lab Results - Last 24 Hours (Table) 02/23/21 02/23/21 02/24/21 Range/Units 08:46 08:46 08:06 MCV 100.7 H (80.0-100.0) fL Lymphocytes # 0.7 L (1.0-4.8) k/uL Sodium 134 L 134 L (137-145) mmol/L Potassium 3.0 L (3.5-5.1) mmol/L Chloride 96 L (98-107) mmol/L Carbon Dioxide 31 H (22-30) mmol/L Glucose 105 H (74-99) mg/dL Total Protein 5.8 L (6.3-8.2) g/dL Albumin 3.1 L (3.5-5.0) g/dL Microbiology - Last 24 Hours (Table) 02/23/21 15:12 Gram Stain - Preliminary Pericardial Fluid Body Fluid Culture - Preliminary 02/23/21 15:12 Anaerobic Culture - Preliminary Pericardial Fluid 02/22/21 16:55 Blood Culture - Preliminary Blood No Growth after 24 hours - Imaging and Cardiology Chest x-ray: report reviewed, image reviewed Assessment and Plan Assessment: 1. Large global pericardial effusion, status post subxiphoid pericardial window 2. Recent probable diagnosis of stage IV metastatic lung cancer, await pathology 3. Previous tobacco dependence 4. Chronic back pain Plan: 1. Continue mediastinal chest tube and monitor drainage. Once drainage becomes minimal Will obtain echocardiogram and discontinue tube 2. Await pathology, culture results 3. Wean O2 as tolerated 4. Increase activity as tolerated 5. Medical management other comorbidities per primary care, oncology, cardiology 6. Discussion had with daughter Vee Bruno, she indicated she is considering continuation of medical treatment for her mother here with our oncologists who are affiliated with [facility] 7. More recommendations to follow Time with Patient: Greater than 30
--- NOTE | 2021-02-24 11:39 | P.PN ---
Subjective HISTORY OF PRESENTING ILLNESS This is a pleasant 80-year-old female past medical history significant for COPD, hypertension, dyslipidemia, peripheral vascular disease, diastolic heart failure, lung cancer currently being evaluated at [facility] and former nicotine dependence. She recently established in the office with Dr. Hankins. He ordered an echocardiogram and a stress test. Echocardiogram was performed and read yesterday revealing preserved LV systolic function with ejection fraction 55, mild mitral regurgitation, mild to moderate tricuspid regurgitation, severe pulmonary hypertension with an RVSP of 72 mmHg and mode rate circumferential pericardial effusion with mild diastolic right atrial collapse concerning for early cardiac tamponade. She was advised to come to the hospital for further evaluation. She is seen and examined resting comfortably laying flat in bed in no acute distress. She is confused and does not give much information. She does deny feeling symptoms of chest pain, shortness of breath, dizziness or palpitations. EKG on arrival reveals sinus mechanism with heart rate 70, low voltage QRS, T-wave inversion anteriorly and flat T-waves inferiorly. Chest x-ray reveals moderate to severe chronic pulmonary fibrotic changes, new cardiomegaly with suggestion of new interstitial edema, new small r ight pleural effusion and new right lung opacity. CT of the chest abdomen and pelvis revealed extensive mediastinal and bronchial adenopathy, pleural effusions and lower lobe pulmonary consolidation, pericardial effusion, as prescribed vascular disease and large low-density mass in the liver. Laboratory data reviewed, CBC unremarkable, sodium 135, potassium 4.1, creatinine 0.6, troponin 0.021. Repeat limited echo reveals a large pleural effusion, large generalized pericardial effusion with preserved LV systolic function with ejection fraction 55-60%. 02/24/2021 Patient is status post pericardial window with 400, pulse removed. She is sitting up resting comfortably in no acute distress. She has no symptoms of chest pain or shortness of breath. Blood pressure 98/62 heart rate 76 afebrile maintaining oxygen saturation on nasal cannula. Laboratory data reviewed, CBC unremarkable, sodium 134, potassium 3.9 and creatinine 0.74. PHYSICAL EXAMINATION CONSTITUTIONAL: No apparent distress. Frail. HEENT: Head is normocephalic. Pupils are equal, round. Sclerae anicteric. Mucous membranes of the mouth are moist. No JVD. No carotid bruit. CHEST EXAMINATION: Lungs are clear to auscultation. No chest wall tenderness is noted on palpation or with deep breathing. Diminished bilaterally. Mediastinal chest tube in place. HEART EXAMINATION: Regular rate and rhythm. S1, S2 heard. No murmurs, gallops or rub. EXTREMITIES: 2+ peripheral pulses, no lower extremity edema and no calf tenderne ss. ASSESSMENT Pericardial effusion with tamponade Lung cancer with mets COPD Hypertension Chronic diastolic heart failure Former nicotine dependence PLAN Encourage incentive spirometer use. We will follow along as needed, ongoing management per cardiothoracic surgery. Follow-up with Dr. Hankins upon discharge. Nurse Practitioner note has been reviewed, I agree with a documented findings and plan of care. Patient was seen and examined. Objective - Vital Signs Vital signs: Vital Signs Temp 97.7 F 02/24/21 08:35 Pulse 80 02/24/21 08:36 Resp 18 02/24/21 08:36 BP 104/70 02/24/21 08:35 Pulse Ox 96 02/24/21 08:35 Intake & Output 02/23/21 02/24/21 02/24/21 18:59 06:59 18:59 Intake Total 1025 20 Output Total 5 300 Balance 1020 -280 Weight 51 kg Intake: IV 925 20 Invasive Line 1 20 Intake, IV Titration 100 Amount cefTRIAXone 1 gm In 100 Sodium Chloride 0.9% 50 ml @ 100 mls/hr IVPB Q24HR [facility] Rx#:[id number] Output: Chest Tube Drainage 300 Chest Tube Mediastinal 300 Estimated Blood Loss 5 Other: Voiding Method Bedpan Bedpan Diaper Diaper Incontinent Incontinent # Voids 1 - Labs CBC & Chem 7: 02/24/21 08:06 02/24/21 08:06 Labs: Abnormal Lab Results - Last 24 Hours (Table) 02/23/21 02/24/21 Range/Units 08:46 08:06 MCV 100.7 H (80.0-100.0) fL Lymphocytes # 0.7 L (1.0-4.8) k/uL Sodium 134 L (137-145) mmol/L Microbiology - Last 24 Hours (Table) 02/23/21 15:12 Gram Stain - Preliminary Pericardial Fluid Body Fluid Culture - Preliminary 02/23/21 15:12 Anaerobic Culture - Preliminary Pericardial Fluid 02/22/21 16:55 Blood Culture - Preliminary Blood No Growth after 24 hours
--- NOTE | 2021-02-24 12:31 | ECHOF ---
Referral Reason:s/p pericardial window MEASUREMENTS -------- HEIGHT: 152.4 cm WEIGHT: 50.8 kg BP: FINDINGS -------- Limited study, limited views due to bandages, pt had pericardial window 02/23/21. Overall left ventricular systolic function is mild-moderately impaired with, an EF between 40 - 45 %. There is a dyskinesia of the septum. The right ventricular systolic function is moderately impaired. There is a small, generalized pericardial effusion present. Large Pleural Effusion. CONCLUSIONS -------- 1. Limited study, limited views due to bandages, pt had pericardial window 02/23/21. 2. Overall left ventricular systolic function is mild-moderately impaired with, an EF between 40 - 45 %. 3. The right ventricular systolic function is moderately impaired. 4. There is a small, generalized pericardial effusion present. 5. Large Pleural Effusion. [employer]: Dora Wilcox RDCS
[2021-02-24] MEDS: KETOROLAC 15 MG/ML 1 ML VIAL IVP PRN ×2 (16:49→23:58)
--- NOTE | 2021-02-24 17:34 | PN ---
PROGRESS NOTE DATE OF SERVICE: 02/24/2021 This 80-year-old woman who was admitted with a fairly large pericardial effusion without any evidence of pericardial tamponade underwent pericardial window by Cardiothoracic Surgery. Final biopsies are pending at this time. The patient has a chest tube in situ. The patient continues to be confused. The patient also had a mediastinal mass. A subxiphoid pericardial window was performed by Cardiothoracic Surgery. A limited echo done today showed large pleural effusions and small generalized pericardial effusion. Ejection fraction was found to be 40% to 45%. Past medical history reviewed. Review of systems could not be taken; the patient is confused. CURRENT MEDICATIONS: Current medications are reviewed and include Tylenol, Ventolin, Lipitor, Rocephin, Lasix, Toradol, Toprol-XL. Doses are reviewed. PHYSICAL EXAMINATION: Patient is conscious, mildly confused. Pulse 85, blood pressure 91/59, respiration 18, temperature 98.2, pulse ox 92% on 2 L. HEENT: Conjunctivae normal. NECK: No jugular venous distention. CARDIOVASCULAR: S1, S2 muffled. RESPIRATION: Breath sounds diminished at the bases. A few scattered rhonchi. ABDOMEN: Soft. NERVOUS SYSTEM: Mild diffuse weakness. LABS: Sodium 132, potassium improved to 3.9. UA noted. The pericardial fluid total protein was 3820. LDH was 620. The virus cultures are pending at this time. Biopsy pending. Cultures are generally negative. ASSESSMENT: 1. Large pericardial effusion, possibly malignant secondary to lung cancer, status post pericardial window and chest tube drainage. 2. Acute urinary tract infection with sepsis, present on admission. 3. Change in mental status, acute metabolic encephalopathy, multifactorial. 4. Possible lung cancer stage IV with metastases and mediastinal adenopathy. 5. Elevated calcium, hypercalcemia, possibly secondary to dehydration as well as malignancy. 6. History of back pain, degenerative joint disease. 7. Hard of hearing. 8. Appendectomy. 9. Sciatic nerve injury. 10.Remote history of nicotine dependence. 11.Mild protein-calorie malnutrition with a body mass index of 19.6. 12.Extensive mediastinal and bronchial adenopathy on the CT scan. 13.Bilateral pleural effusion and atelectasis. 14.Liver mass on the CT scan. 15.FULL CODE. RECOMMENDATIONS AND DISCUSSION: In this 80-year-old woman who presented with multiple complex medical issues, we will continue the current medications, continue with symptomatic treatment. Continue with chest tube drainage. Follow closely with multiple consultants, including Cardiothoracic Surgery, Pulmonology and Hematology/Oncology. Await final biopsy report. Otherwise, continue with empiric antibiotics. Continue the rest of the medications. Prognosis is guarded because of multiple complex medical issues. Further recommendations to follow. MMODL / IJN: [id number] /
--- NOTE | 2021-02-24 17:58 | P.PN ---
Subjective Progress Note Date: 02/24/21 Principal diagnosis: Bilateral pleural effusions, pericardial effusion, metastatic lung cancer This is a 80-year-old white female patient with past medical history of smoking, previous history of CVA, dementia, hyperlipidemia, chronic back pain, difficulty hearing, who presented to the emergency department with her daughter on all 02/21/2021 from the [employer], being sent in by Dr. Murillo who found a significant pericardial effusion. Patient is apparently recently being extensively evaluated at the [facility] by medical oncology. Patient apparently had lung cancer with metastasis in the liver and probable brain according to the daughter. Dr. Cope at [facility] have taken biopsies and the results are not known to us at this time. Patient had a PET scan, and the results are not known to us. Patient is a poor historian. Her daughter initially wanted the patient to go back to Dr. Cope at the [facility] however she later changed her mind and decided to stay and get evaluated and treated at this hospital. Her chest x-ray shows moderate to severe chronic pulmonary fibrotic changes, new cardiomegaly, with suggestion of new interstitial edema, new small right pleural effusion possible acute right lung infiltrate and/or atelectasis, underlying mass was suspected, causing left-sided tracheal deviation. CT of the chest abdomen and pelvis without contrast showed extensive mediastinal and bronchial adenopathy, pleural effusions and lower lobe pulmonary consolidation and atelectasis, there was pericardial effusion, possibility of CHF was also considered, there was a large low density mass in the liver and ultrasound of the liver was recommended. There was no significant adenopathy seen in the abdomen or pelvis. Echocardiogram showed normal LV function with an EF of 55-60%, and a large generalized pericardial effusion. Patient's labs were reviewed, white blood cell count was normal at 8.2, hemoglobin is 13.9, platelet count is 294, lymphocyte count is 0.9, INR is 1.0, electrolytes are unremarkable, renal function is within normal limits. Troponin is 0.021, LFTs were within normal limits, urinalysis showed positive nitrites, large leuks, and 124 of white blood cells suggesting presence of urinary tract infection. Patient has been started on Rocephin. She is breathing fairly comfortably, she is currently on 2 L of oxygen and a pulse ox of 94-97%, her vitals are stable, blood pressure is 109/54. She is afebrile. EKG showed sinus rhythm, T-wave inversion in anterior leads. CT surgery has been consulted for possibility of pericardiocentesis or pericardial window. Patient has been scheduled for pericardial window tomorrow on 02/23/2021. She is currently breathing fairly comfortably, she is on 2 L of oxygen pulse ox is 94%. On 02/23/2021 patient seen in follow-up on selective care unit. She is resting comfortably in bed, she is extremely hard of hearing, but appears to be no acute distress, she denies any dyspnea, denies any chest discomfort. She was sleeping comfortably only came in for evaluation, upon awakening, she is alert and pleasant, she denies any specific complaints, she is breathing comfortably, no use of accessory muscles noted, vital signs have been stable overnight, she is on 2 L of oxygen with a pulse ox of 93%. No fever or chills, blood pressure is stable, currently 121/75. Patient was started on antibiotics for possibility of urinary tract infection, today's labs have been reviewed. White count is 6.1, hemoglobin is 13.2, sodium is 134, potassium is 3.0, chloride is 96, CO2 is 31, BUN is 13 and creatinine 0.70, patient has been nothing by mouth for surgical intervention and placement of pericardial window today. Patient is in sinus mechanism, she is not on any vasopressor support, she is on IV fluids with 0.9 normal saline at a rate of 20 ML per hour. On 02/24/2021 patient seen in follow-up on selective care unit, patient is status post pericardial window would removal of 400 mL of pericardial fluid which was sent for cytology. The results of cytology are still pending at this time, on today's evaluation patient is seen resting in bed, appears to be in no acute distress, she denies any difficulty breathing, she is on 2 L of oxygen pulse ox is 92-96%, no fever or chills, blood pressure is 91/59, breathing is nonlabored. No complaints of chest discomfort. Today's chest x-ray showing cardiomegaly with small bilateral pleural effusions and right greater than left bibasilar acute atelectasis and/or infiltrates. Persistent right paratracheal mass with local mass effect, background chronic emphysematous and pulmonary fibrotic changes. Pericardial fluid cultures are pending, pericardial fluid Gram stain showed rare PMNs, no organisms were seen. His labs have been reviewed, white blood cell count is 9, hemoglobin is 13.8, sodium is 134, and the rest of the electrolytes and renal profile were within normal limits, magnesium is 1.4. Viral cultures of the pericardial fluid showed no viruses. Patient has a subxiphoid mediastinal chest tube and patient put out 300 mL of serous drainage since surgery. Objective - Vital Signs Vital signs: Vital Signs Temp 98.2 F 02/24/21 16:20 Pulse 85 02/24/21 16:20 Resp 18 02/24/21 16:20 BP 91/59 02/24/21 16:20 Pulse Ox 92 L 02/24/21 16:20 Intake & Output 02/23/21 02/24/21 02/24/21 18:59 06:59 18:59 Intake Total 1025 20 260 Output Total 5 300 30 Balance 1020 -280 230 Weight 51 kg Intake: IV 925 20 20 Invasive Line 1 20 20 Intake, IV Titration 100 Amount cefTRIAXone 1 gm In 100 Sodium Chloride 0.9% 50 ml @ 100 mls/hr IVPB Q24HR [facility] Rx#:[id number] Oral 240 Output: Chest Tube Drainage 300 30 Chest Tube Mediastinal 300 30 Estimated Blood Loss 5 Other: Voiding Method Bedpan Bedpan Bedpan Diaper Diaper Diaper Incontinent Incontinent Incontinent # Voids 1 1 - Exam GENERAL EXAM: Alert, 80-year-old frail looking white female, resting comfortably in bed, on 2 L of oxygen comfortable in no apparent distress. HEAD: Normocephalic/atraumatic. EYES: Normal reaction of pupils, equal size. Conjunctiva pink, sclera white. NOSE: Clear with pink turbinates. THROAT: No erythema or exudates. NECK: No masses, no JVD, no thyroid enlargement, no adenopathy. CHEST: No chest wall deformity. Symmetrical expansion. Subxiphoid chest tube present with small amount of serous output in the atrium LUNGS: Equal air entry with diminished breath sounds at bilateral bases CVS: Regular rate and rhythm, normal S1 and S2, no gallops, no murmurs, no rubs ABDOMEN: Soft, nontender. No hepatosplenomegaly, normal bowel sounds, no guarding or rigidity. EXTREMITIES: No clubbing, no edema, no cyanosis, 2+ pulses and upper and lower extremities. MUSCULOSKELETAL: Muscle strength and tone normal. SPINE: No scoliosis or deformity SKIN: No rashes CENTRAL NERVOUS SYSTEM: Alert and oriented -2. No focal deficits, tone is normal in all 4 extremities. PSYCHIATRIC: Alert and oriented -2. Appropriate affect. Intact judgment and insight. - Labs CBC & Chem 7: 02/24/21 08:06 02/24/21 08:06 Labs: Abnormal Lab Results - Last 24 Hours (Table) 02/24/21 02/24/21 Range/Units 08:06 17:18 Sodium 134 L (137-145) mmol/L Magnesium 1.4 L (1.6-2.3) mg/dL Microbiology - Last 24 Hours (Table) 02/23/21 15:12 Gram Stain - Preliminary Pericardial Fluid Body Fluid Culture - Preliminary 02/23/21 15:12 Anaerobic Culture - Preliminary Pericardial Fluid 02/22/21 16:55 Blood Culture - Preliminary Blood No Growth after 24 hours Assessment and Plan Plan: Assessment: #1. Lung cancer, with metastasis, currently undergoing evaluation at the [facility]. Patient had biopsies and the PET scan there, the records are not available to us at this time #2. Generalized pericardial effusion, post pericardial window on 02/23/2021, 400 mL of pericardial fluid was removed and sent for cytology cultures and analysis, mediastinal chest tube remains in place #3. Bilateral pleural effusions, extensive mediastinal and bronchial adenopathy related to underlying history of metastatic lung cancer #4. Former smoker #5. Hypertension #6. Dyslipidemia #7. Peripheral vascular disease #8. Diastolic heart failure #9. Dementia #10. History of CVA/TIA Plan: Awaiting pericardial fluid cytology results Patient is breathing comfortably, appears to be in no acute distress, she is on 2 L of oxygen Vital signs are stable follow-up chest x-ray has been noted We'll continue to follow Will await results of the pericardial fluid cytology, If nondiagnostic new proceed with thoracentesis for diagnostic purposes and possible bronchoscopy with biopsies I performed a history & physical examination of the patient and discussed their management with my nurse practitioner, Michelle Rosado. I reviewed the nurse practitioner's note and agree with the documented findings and plan of care. Lung sounds are positive for diminished breath sounds throughout the lung ladd. The findings and the impression was discussed with the patient. I attest to the documentation by the nurse practitioner. Time with Patient: Less than 30
[2021-02-24] MEDS ORDERED: SODIUM CHLORIDE 0.9% 500 ML 250 ML IV ONE (18:23)
[2021-02-24] MEDS ORDERED: Magnesium Replacement Protocol 1 EACH MISC MISCELLANE PRN (18:24)
[2021-02-24] MEDS: SODIUM CHLORIDE 0.9% 1,000 ML IV SCH (19:03)
[2021-02-24] MEDS: MAGNESIUM SULFATE-D5W PMX 1 GM in DEXTROSE/WATER 1 100ML.BAG IVPB SCH ×3 (19:03→21:53)
[2021-02-25] MEDS: ALBUTEROL NEBULIZED 2.5 MG/3 ML INHALATION PRN ×2 (07:59→16:10)
[2021-02-25] MEDS: METOPROLOL SUCCINATE (ER) 50 MG TAB.ER.24H PO SCH (08:32)
[2021-02-25] MEDS: FUROSEMIDE 20 MG TAB PO SCH (08:32)
[2021-02-25] MEDS: ATORVASTATIN 40 MG TAB PO SCH (08:32)
--- NOTE | 2021-02-25 10:29 | P.PN ---
Subjective Progress Note Date: 02/25/21 This is a 80-year-old white female patient with past medical history of smoking, previous history of CVA, dementia, hyperlipidemia, chronic back pain, difficulty hearing, who presented to the emergency department with her daughter on all 02/21/2021 from the [facility], being sent in by Dr. Murillo who found a significant pericardial effusion. Patient is apparently recently being extensively evaluated at the [facility] by medical oncology. Patient apparently had lung cancer with metastasis in the liver and probable brain according to the daughter. Dr. Cope at [facility] have taken biopsies and the results are not known to us at this time. Patient had a PET scan, and the results are not known to us. Patient is a poor historian. Her daughter initially wanted the patient to go back to Dr. Cope at the [facility] however she later changed her mind and decided to stay and get evaluated and treated at this hospital. Her chest x-ray shows moderate to severe chronic pulmonary fibrotic changes, new cardiomegaly, with suggestion of new interstitial edema, new small right pleural effusion possible acute right lung infiltrate and/or atelectasis, underlying mass was suspected, causing left-sided tracheal deviation. CT of the chest abdomen and pelvis without contrast showed extensive mediastinal and bronchial adenopathy, pleural effusions and lower lobe pulmonary consolidation and atelectasis, there was pericardial effusion, possibility of CHF was also considered, there was a large low density mass in the liver and ultrasound of the liver was recommended. There was no significant adenopathy seen in the abdomen or pelvis. Echocardiogram showed normal LV function with an EF of 55-60%, and a large generalized pericardial effusion. Patient's labs were reviewed, white blood cell count was normal at 8.2, hemoglobin is 13.9, platelet count is 294, lymphocyte count is 0.9, INR is 1.0, electrolytes are unremarkable, renal function is within normal limits. Troponin is 0.021, LFTs were within normal limits, urinalysis showed positive nitrites, large leuks, and 124 of white blood cells suggesting presence of urinary tract infection. Patient has been started on Rocephin. She is breathing fairly comfortably, she is currently on 2 L of oxygen and a pulse ox of 94-97%, her vitals are stable, blood pressure is 109/ 54. She is afebrile. EKG showed sinus rhythm, T-wave inversion in anterior leads. CT surgery has been consulted for possibility of pericardiocentesis or pericardial window. Patient has been scheduled for pericardial window tomorrow on 02/23/2021. She is currently breathing fairly comfortably, she is on 2 L of oxygen pulse ox is 94%. On 02/23/2021 patient seen in follow-up on selective care unit. She is resting comfortably in bed, she is extremely hard of hearing, but appears to be no acute distress, she denies any dyspnea, denies any chest discomfort. She was sleeping comfortably only came in for evaluation, upon awakening, she is alert and pleasant, she denies any specific complaints, she is breathing comfortably, no use of accessory muscles noted, vital signs have been stable overnight, she is on 2 L of oxygen with a pulse ox of 93%. No fever or chills, blood pressure is stable, currently 121/75. Patient was started on antibiotics for possibility of urinary tract infection, today's labs have been reviewed. White count is 6.1, hemoglobin is 13.2, sodium is 134, potassium is 3.0, chloride is 96, CO2 is 31, BUN is 13 and creatinine 0.70, patient has been nothing by mouth for surgical intervention and placement of pericardial window today. Patient is in sinus mechanism, she is not on any vasopressor support, she is on IV fluids with 0.9 normal saline at a rate of 20 ML per hour. On 02/24/2021 patient seen in follow-up on selective care unit, patient is status post pericardial window would removal of 400 mL of pericardial fluid which was sent for cytology. The results of cytology are still pending at this time, on today's evaluation patient is seen resting in bed, appears to be in no acute distress, she denies any difficulty breathing, she is on 2 L of oxygen pulse ox is 92-96%, no fever or chills, blood pressure is 91/59, breathing is nonlabored. No complaints of chest discomfort. Today's chest x-ray showing cardiomegaly with small bilateral pleural effusions and right greater than left bibasilar acute atelectasis and/or infiltrates. Persistent right paratracheal mass with local mass effect, background chronic emphysematous and pulmonary fibrotic changes. Pericardial fluid cultures are pending, pericardial fluid Gram stain showed rare PMNs, no organisms were seen. His labs have been reviewed, white blood cell count is 9, hemoglobin is 13.8, sodium is 134, and the rest of the electrolytes and renal profile were within normal limits, magne sium is 1.4. Viral cultures of the pericardial fluid showed no viruses. Patient has a subxiphoid mediastinal chest tube and patient put out 300 mL of serous drainage since surgery. A 2020, the patient remains quite debilitated, weak, emaciated, not eating a lot. He was given Ensure and her intake is minimal at this point in time. She is resting comfortably in bed. She is on 2 L of oxygen by nasal cannula. The pericardial tube is still in place and the total amount of output has been a pproximately 110 mL over the past 24 hours. The fluid LDH is at 620. Fluid cytology still pending for now. A repeat echocardiogram was done yesterday and it showed some small pericardial effusion. Ejection fraction was around 40-45%. Echocardiogram also showed a right-sided pleural effusion which was also seen on the CAT scan of the chest. Of concern is underlying lung cancer as the patient's CAT scan of the chest showed extensive mediastinal lymphadenopathy with pleural effusion and hepatic mass. Nevertheless, the patient is extremely debilitated. Not sure if she is going to be a good candidate for any further treatment based on her very poor baseline performance and functional status. In any rate, the pericardial fluid cytology is not back yet. Objective - Vital Signs Vital signs: Vital Signs Temp 97.8 F 02/25/21 08:00 Pulse 76 02/25/21 08:07 Resp 22 02/25/21 08:00 BP 100/66 02/25/21 08:00 Pulse Ox 94 L 02/25/21 08:00 Intake & Output 02/24/21 02/25/21 02/25/21 18:59 06:59 18:59 Intake Total 260 10 0 Output Total 30 110 Balance 230 -100 0 Weight 50 kg Intake: IV 20 10 Invasive Line 1 20 10 Oral 240 0 Output: Chest Tube Drainage 30 110 Chest Tube Mediastinal 30 110 Other: Voiding Method Bedpan Diaper Diaper Diaper Incontinent Incontinent Incontinent # Voids 1 1 - Exam GENERAL EXAM: Alert, 80-year-old frail looking white female, resting comfortably in bed, on 2 L of oxygen comfortable in no apparent distress. HEAD: Normocephalic/atraumatic. EYES: Normal reaction of pupils, equal size. Conjunctiva pink, sclera white. NOSE: Clear with pink turbinates. THROAT: No erythema or exudates. NECK: No masses, no JVD, no thyroid enlargement, no adenopathy. CHEST: No chest wall deformity. Symmetrical expansion. Subxiphoid chest tube present with small amount of serous output in the atrium LUNGS: Equal air entry with diminished breath sounds at bilateral bases CVS: Regular rate and rhythm, normal S1 and S2, no gallops, no murmurs, no rubs ABDOMEN: Soft, nontender. No hepatosplenomegaly, normal bowel sounds, no guarding or rigidity. EXTREMITIES: No clubbing, no edema, no cyanosis, 2+ pulses and upper and lower extremities. MUSCULOSKELETAL: Muscle strength and tone normal. SPINE: No scoliosis or deformity SKIN: No rashes CENTRAL NERVOUS SYSTEM: Alert and oriented -2. No focal deficits, tone is normal in all 4 extremities. PSYCHIATRIC: Alert and oriented -2. Appropriate affect. Intact judgment and insight. - Labs CBC & Chem 7: 02/24/21 08:06 02/24/21 08:06 Labs: Abnormal Lab Results - Last 24 Hours (Table) 02/24/21 Range/Units 17:18 Magnesium 1.4 L (1.6-2.3) mg/dL Microbiology - Last 24 Hours (Table) 02/22/21 16:55 Blood Culture - Preliminary Blood No Growth after 48 hours 02/23/21 15:12 Gram Stain - Preliminary Pericardial Fluid Body Fluid Culture - Preliminary Assessment and Plan Plan: #1. Suspected Lung cancer, with metastasis, currently undergoing evaluation at the [facility]. Patient had biopsies and the PET scan there, the records are not available to us at this time, a son a CAT scan findings, the findings are consistent with metastatic lung cancer. #2. Generalized pericardial effusion, post pericardial window on 02/23/2021, 400 mL of pericardial fluid was removed and sent for cytology cultures and analysis, mediastinal chest tube remains in place , the pericardial tube is still in place and it has drained approximately 150s over the past 24 hours. #3. Bilateral pleural effusions, extensive mediastinal and bronchial adenopathy related to underlying history of metastatic lung cancer #4. Former smoker #5. Hypertension #6. Dyslipidemia #7. Peripheral vascular disease #8. Diastolic heart failure #9. Dementia #10. History of CVA/TIA Plan: Awaiting pericardial fluid cytology results Patient is breathing comfortably, appears to be in no acute distress, she is on 2 L of oxygen May need a therapeutic thoracentesis later stage Extremely debilitated. A discussion is to take place along with the family members to establish goals of treatment and course status once it final diagnoses been established. In my opinion, the patient's performance and functional status is extremely poor. She would not be a good candidate for any further treatment in regards to any form of malignancy. We'll continue to follow.
--- NOTE | 2021-02-25 11:25 | P.PN ---
Subjective Progress Note Date: 02/25/21 Principal diagnosis: Large pericardial effusion with mediastinal mass. Recent suspected diagnosis of stage IV metastatic lung cancer, remote history of tobacco dependence, chronic back pain. POD #2 subxiphoid pericardial window with removal of 400 mL straw-colored fluid which was sent for pathology and culture. The patient is seen in follow-up today 02/25/2021 at her bedside on the cardiac stepdown unit. She is awake and alert and is in no acute apparent distress. A limited 2-D echocardiogram was completed at her bedside yesterday which shows an overall left ventricular systolic function to be mild to moderately impaired with an ejection fraction between 40 and 45%, right ventricular systolic function is moderately impaired, a small, generalized pericardial effusion be present and a large pleural effusion. Oxygen saturations are 94% on 2 L nasal cannula. Subxiphoid chest tube remains in place to waterseal. No air leak is present. Draining thin serosanguineous drainage with 110 mL output in the last 24 hours. Pathology results of the pericardium biopsy remain pending. Objective - Vital Signs Vital signs: Vital Signs Temp 97.8 F 02/25/21 08:00 Pulse 76 02/25/21 08:07 Resp 22 02/25/21 08:00 BP 100/66 02/25/21 08:00 Pulse Ox 94 L 02/25/21 08:00 Intake & Output 02/24/21 02/25/21 02/25/21 18:59 06:59 18:59 Intake Total 260 10 0 Output Total 30 110 Balance 230 -100 0 Weight 50 kg Intake: IV 20 10 Invasive Line 1 20 10 Oral 240 0 Output: Chest Tube Drainage 30 110 Chest Tube Mediastinal 30 110 Other: Voiding Method Bedpan Diaper Diaper Diaper Incontinent Incontinent Incontinent # Voids 1 1 - Exam CONSTITUTIONAL: Lying in bed on the cardiac stepdown unit, appears comfortable, cooperative, no apparent acute distress. HEENT: Neck is supple, no JVD, no lymphadenopathy. RESPIRATORY: Lungs sounds essentially clear throughout, diminished to his bilateral bases. Respirations are symmetrical and nonlabored. Currently on 2 L nasal cannula with oxygen saturations 94%. CARDIOVASCULAR: Regular rhythm and rate. S1 and S2 present, negative for S3, gallop or murmur. Palpable peripheral pulses bilaterally. No calf pain or tenderness noted. No edema present. GASTROINTESTINAL: Abdomen soft, nontender, nondistended. Active bowel sounds present 4 quadrants. No guarding or rigidity. GENITOURINARY: Continues to void, incontinence. INTEGUMENTARY: Skin is warm and dry with no evidence of clubbing or cyanosis. Subxiphoid incision is clean, dry and approximated. No drainage or redness is present. NEUROLOGIC: Cranial nerves II through XII intact. MUSKULOSKELETAL: Able to move all extremities, strength equal bilaterally, generalized weakness. PSYCHIATRIC: Alert and oriented to person place and time, appropriate affect, periods of forgetfulness. INVASIVE LINES AND TUBES: Subxiphoid chest tube is in place and to waterseal. N o air leak is present. 110 mL output in the last 24 hours. - Labs CBC & Chem 7: 02/24/21 08:06 02/24/21 08:06 Labs: Abnormal Lab Results - Last 24 Hours (Table) 02/24/21 Range/Units 17:18 Magnesium 1.4 L (1.6-2.3) mg/dL Microbiology - Last 24 Hours (Table) 02/22/21 16:55 Blood Culture - Preliminary Blood No Growth after 48 hours 02/23/21 15:12 Gram Stain - Preliminary Pericardial Fluid Body Fluid Culture - Preliminary Assessment and Plan Assessment: 1. Large global pericardial effusion, status post subxiphoid pericardial window 2. Recent probable diagnosis of stage IV metastatic lung cancer, await pathology 3. Previous tobacco dependence 4. Chronic back pain Plan: 1. Continue mediastinal chest tube to waterseal, continue to record accurate I's and O's. Once drainage becomes minimal Will obtain echocardiogram and discontinue the subxiphoid chest tube. 2. Pericardial biopsy pathology results remain pending, as well as culture results. Culture results show no growth after 24 hours. Blood culture results show no growth after 48 hours. 3. Wean O2 as tolerated. 4. Increase activity as tolerated. Out of bed for all meals. 5. Medical management other comorbidities per primary care, oncology, cardiology services. 6. More recommendations to follow based on patient's clinical course. Time with Patient: Greater than 30
[2021-02-25] MEDS: KETOROLAC 15 MG/ML 1 ML VIAL IVP PRN ×2 (12:11→19:40)
[2021-02-25] MEDS: ALPRAZolam 0.25 MG TAB PO PRN ×2 (15:39→20:38)
[2021-02-25] MEDS: SODIUM CHLORIDE 0.9% 1,000 ML IV SCH (15:40)
--- NOTE | 2021-02-25 16:33 | XR ---
EXAMINATION TYPE: XR chest 1V portable DATE OF EXAM: 02/25/2021 COMPARISON: 02/24/2021. HISTORY: Worsening shortness of breath. TECHNIQUE: Single frontal view of the chest is obtained. FINDINGS: There is persistent moderate right and small left bibasilar opacities with small right ple ural effusion. No pneumothorax seen. The cardiac silhouette size is within normal limits. The osse ous structures are intact. Partially imaged catheter overlying the right abdomen and terminating at t he cavoatrial junction, unchanged. IMPRESSION: Persistent right greater than left bibasilar opacities with small pleural effusion, chuck lar to prior study.
[2021-02-26] MEDS: KETOROLAC 15 MG/ML 1 ML VIAL IVP PRN ×2 (01:37→23:55)
[2021-02-26] MEDS: ALPRAZolam 0.25 MG TAB PO PRN ×2 (01:42→07:39)
--- NOTE | 2021-02-26 02:36 | P.PN ---
Subjective Progress Note Date: 02/25/21 Principal diagnosis: Large pericardial effusion Ms. Kingston is an 80-year-old female with large pericardial effusion without evidence of pericardial tamponade and underwent pericardial window by cardiothoracic surgery, pending biopsy results. On 02/25/2021 -patient is seen and examined at the bedside. Patient still has chest tube in place and appears to be slightly confused. Patient also has a mediastinal mass, patient had a limited echo done yesterday at bedside showing overall left ventricular ejection fraction to be between 40 to 45% and right ventricular systolic function is moderately impaired. She had 110 mL of output, thin serosanguineous drainage in the last 24 hours. As per discussion with nursing staff no acute events reported overnight. Patient is pleasantly confused a review of systems could not be done. On reviewing the patient's vitals temperature of 98, heart rate 88, respiratory 24, saturating at 93% on 3 L with blood pressure 110/73. No new labs from this morning. Patient's medications have been reviewed. Objective - Vital Signs Vital signs: Vital Signs Temp 97.6 F 02/25/21 11:53 Pulse 79 02/25/21 14:00 Resp 20 02/25/21 14:00 BP 113/69 02/25/21 11:53 Pulse Ox 98 02/25/21 11:53 Intake & Output 02/24/21 02/25/21 02/25/21 18:59 06:59 18:59 Intake Total 260 10 520 Output Total 30 110 0 Balance 230 -100 520 Weight 50 kg Intake: IV 20 10 Invasive Line 1 20 10 Intake, IV Titration 400 Amount Sodium Chloride 0.9% 1, 400 000 ml @ 50 mls/hr IV . Q20H [facility] Rx#:[id number] Oral 240 120 Output: Chest Tube Drainage 30 110 0 Chest Tube Mediastinal 30 110 0 Other: Voiding Method Bedpan Diaper Diaper Diaper Incontinent Incontinent Incontinent # Voids 1 1 1 - Exam GEN. APPEARANCE: alert, in no apparent distress HE ENT: No pallor. No icterus. RESPIRATORY EXAM: Bilateral BS ,slightest diminished at the bases, No wheezes or crackles. CARDIOVASCULAR EXAM: S1-S2 heard. No additional sounds. Chest tube in place with serosanginous drainage GI/ABDOMINAL EXAM: soft, normal bowel sounds. EXTREMITIES EXAM: No edema. NEUROLOGICAL EXAM: alert, oriented X1-2 , no focal deficits. PSYCHIATRIC EXAM: normal affect, normal mood SKIN EXAM: No rash. - Labs CBC & Chem 7: 02/24/21 08:06 02/24/21 08:06 Labs: Abnormal Lab Results - Last 24 Hours (Table) 02/24/21 Range/Units 17:18 Magnesium 1.4 L (1.6-2.3) mg/dL Microbiology - Last 24 Hours (Table) 02/22/21 16:55 Blood Culture - Preliminary Blood No Growth after 48 hours 02/23/21 15:12 Gram Stain - Preliminary Pericardial Fluid Body Fluid Culture - Preliminary Assessment and Plan Assessment: ASSESSMENT Large pericardial effusion with possible malignancy secondary to lung cancer Status post pericardial effusion and chest tube drainage Acute UTI with sepsis present on admission Acute metabolic encephalopathy multifactorial Possible stage IV lung cancer with mets and mediastinal lymphadenopathy History of chronic degenerative joint disease Remote history of nicotine dependence Mild protein calorie malnutrition Bilateral pleural effusion and atelectasis Liver mass on CAT scan Full code PLAN : Patient with chronic multiple complex medical issues being followed by CT surgery status post pericardial window placement for large pericardial effusion. Pathology currently pending. Multiple consultants including CT surgery, pulmonary, hematology/oncology on board and following the patient closely. Patient to be continued on the current medication regimen. Overall prognosis is guarded secondary to multiple complex medical conditions. Further recommendations depending on the progress of the patient.
[2021-02-26] MEDS: ALBUTEROL NEBULIZED 2.5 MG/3 ML INHALATION PRN ×4 (02:44→16:13)
--- NOTE | 2021-02-26 07:31 | XR ---
EXAMINATION TYPE: XR chest 1V portable DATE OF EXAM: 02/26/2021 COMPARISON: 02/25/2021 HISTORY: Shortness of breath TECHNIQUE: Single frontal view of the chest is obtained. FINDINGS: There are moderate by basilar partially consolidative opacities likely indicating combinat ion of atelectasis and airspace consolidation as well as pleural effusion. There is been no interval change since prior study. There is mild interstitial prominence in the visualized aerated upper lungs likely indicating mild interstitial edema. There is marked consolidation or masslike opacity in the right paratracheal region and lung mass or a denopathy is not excluded. The osseous structures are intact. IMPRESSION: 1.No change in bibasilar opacities consistent with a combination of pleural effusion, atelectasis and consolidation. 2. No change in the right paratracheal opacity consistent with lung mass or adenopathy.
[2021-02-26] MEDS: FUROSEMIDE 20 MG TAB PO SCH (07:39)
[2021-02-26] MEDS: SODIUM CHLORIDE 0.9% 1,000 ML IV SCH (07:39)
[2021-02-26] MEDS: ATORVASTATIN 40 MG TAB PO SCH (07:39)
[2021-02-26] MEDS: METOPROLOL SUCCINATE (ER) 50 MG TAB.ER.24H PO SCH (07:39)
[2021-02-26 07:42] LABS: Basophils # (A) 0.1 k/uL (0-0.2); Basophils % (A) 1 %; Eosinophils # (A) 0.3 k/uL (0-0.7); Eosinophils % (A) 4 %; HCT 37.8 % (34.0-46.0); HGB 12.2 gm/dL (11.4-16.0); Lymphocytes # (A) 0.8 k/uL (1.0-4.8); Lymphocytes % (A) 12 %; MCH 31.5 pg (25.0-35.0); MCHC 32.2 g/dL (31.0-37.0); Monocytes # (A) 0.6 k/uL (0-1.0); Monocytes % (A) 8 %; Neutrophils # (A) 5.4 k/uL (1.3-7.7); Neutrophils % (A) 74 %; Platelet Count 226 k/uL (150-450); RBC 3.86 m/uL (3.80-5.40); RDW 13.7 % (11.5-15.5); WBC 7.3 k/uL (3.8-10.6)
[2021-02-26 07:58] LABS: African American GFR (CKD) >90 (>60 ml/min/1.73 sqM); Anion Gap 3 mmol/L; Blood Urea Nitrogen 17 mg/dL (7-17); Calcium 9.3 mg/dL (8.4-10.2); Carbon Dioxide 28 mmol/L (22-30); Chloride 104 mmol/L (98-107); Glucose 113 mg/dL (74-99); Non-African American GFR(CKD) 87 (>60 ml/min/1.73 sqM); Potassium 3.4 mmol/L (3.5-5.1); Sodium 135 mmol/L (137-145)
[2021-02-26] MEDS ORDERED: ALPRAZolam 0.25 MG TAB PO STA (09:00)
--- NOTE | 2021-02-26 11:08 | P.PN ---
Subjective Progress Note Date: 02/26/21 Principal diagnosis: Large pericardial effusion with mediastinal mass, bilateral pleural effusions. Recent suspected diagnosis of stage IV suspected metastatic lung cancer, hypert ension, dyslipidemia, peripheral vascular disease, diastolic heart failure, history of CVA/TIA, remote history of tobacco dependence, chronic back pain. POD #3 subxiphoid pericardial window with removal of 400 mL straw-colored fluid which was sent for pathology and culture. The patient is seen in follow-up today 02/26/2021 at her bedside on the cardiac stepdown unit. She is awake and alert and is in no acute apparent distress, although is having some episodes of shortness of breath and tachypnea. Oxygen saturations are 98% on 3 L nasal cannula. Subxiphoid chest tube remains in place to waterseal. No air leak is present. Draining thin serosanguineous drainage with 20 mL output in the last 8 hours and 80 mL output in the last 24 hours. Pathology results of the pericardium biopsy remain pending. The patient bedside nurse reports that the patient has been having episodes of yelling out for help this morning with complaints of shortness of breath and inability to clear her secretions. Dr. Goldsmith spoke with the patient's daughter was present at her bedside, regarding the patient's poor prognosis. Objective - Vital Signs Vital signs: Vital Signs Temp 97.6 F 02/26/21 07:43 Pulse 77 02/26/21 09:45 Resp 22 02/26/21 07:45 BP 106/68 02/26/21 07:43 Pulse Ox 93 L 02/26/21 09:38 Intake & Output 02/25/21 02/26/21 02/26/21 18:59 06:59 18:59 Intake Total 520 10 240 Output Total 10 70 10 Balance 510 -60 230 Intake: IV 10 Invasive Line 1 10 Intake, IV Titration 400 Amount Sodium Chloride 0.9% 1, 400 000 ml @ 50 mls/hr IV . Q20H [facility] Rx#:[id number] Oral 120 240 Output: Chest Tube Drainage 10 70 10 Chest Tube Mediastinal 10 70 10 Other: Voiding Method Diaper Diaper Diaper Incontinent Incontinent Incontinent # Voids 1 2 # Bowel Movements 1 - Exam CONSTITUTIONAL: Lying in bed on the cardiac stepdown unit, appears tachypneic, and cooperative. HEENT: Neck is supple, no JVD, no lymphadenopathy. RESPIRATORY: Lungs sounds with few scattered rhonchi throughout, diminished bilateral bases. Respirations are symmetrical and tachypneic. Currently on 3 L nasal cannula with oxygen saturations 98%. Unable to tolerate using her incentive spirometry. CARDIOVASCULAR: Regular rhythm and rate. S1 and S2 present, negative for S3, gallop or murmur. Palpable peripheral pulses bilaterally. No calf pain or tenderness noted. No edema present. GASTROINTESTINAL: Abdomen soft, nontender, nondistended. Active bowel sounds present 4 quadrants. No guarding or rigidity. GENITOURINARY: Continues to void, incontinence. INTEGUMENTARY: Skin is warm and dry with no evidence of clubbing or cyanosis. Subxiphoid incision is clean, dry and approximated. No drainage or redness is present. NEUROLOGIC: Cranial nerves II through XII intact. MUSKULOSKELETAL: Able to move all extremities, strength equal bilaterally, generalized weakness. PSYCHIATRIC: Alert and oriented to person place and time, appropriate affect, periods of forgetfulness. INVASIVE LINES AND TUBES: Subxiphoid chest tube is in place and to waterseal. No air leak is present. 80 mL output in the last 24 hours. - Labs CBC & Chem 7: 02/26/21 07:25 02/26/21 07:25 Labs: Abnormal Lab Results - Last 24 Hours (Table) 02/26/21 02/26/21 Range/Units 07:25 07:25 Lymphocytes # 0.8 L (1.0-4.8) k/uL Sodium 135 L (137-145) mmol/L Potassium 3.4 L (3.5-5.1) mmol/L Glucose 113 H (74-99) mg/dL Microbiology - Last 24 Hours (Table) 02/23/21 15:12 Anaerobic Culture - Preliminary Pericardial Fluid 02/22/21 16:55 Blood Culture - Preliminary Blood No Growth after 72 hours 02/23/21 15:12 Gram Stain - Preliminary Pericardial Fluid Body Fluid Culture - Preliminary Assessment and Plan Assessment: 1. Large global pericardial effusion, status post subxiphoid pericardial window 2. Recent probable diagnosis of stage IV metastatic lung cancer, await pathology 3. Previous tobacco dependence 4. Chronic back pain Plan: 1. Continue mediastinal chest tube to waterseal, continue to record accurate I's and O's. We will obtain a limited 2-D echocardiogram in the morning 02/27/2021 and likely remove the subxiphoid chest tube. 2. Pericardial biopsy pathology results remain pending, as well as culture results. Culture results show no growth after 48 hours. Blood culture results show no growth after 72 hours. 3. Wean O2 as tolerated. Encourage use of her incentive spirometry 10 times every hour while awake. 4. Increase activity as tolerated. Out of bed for all meals. Physical and occupational therapy following. 5. Medical management other comorbidities per primary care, oncology, cardiology services. 6. More recommendations to follow based on patient's clinical course. Time with Patient: Greater than 30
--- NOTE | 2021-02-26 11:20 | P.PN ---
Subjective Progress Note Date: 02/26/21 On today's evaluation of 02/26/2021, the patient is extremely poor. The patient feels that she is suffocating. She feels that she is unable to breathe. She is quite anxious. She is diaphoretic. Her cough is extremely weak. She is unable to bring up any sputum. She is unable to have a conversation. Family is at the bedside. I explained to them at length the situation. The pericardial tube is still in place. The chest x-ray from today showing a right-sided pleural effusion. There is a large mediastinal mass which is obvious that shifting the trachea and is also causing a mass effect on the esophagus. Obviously, this is an end-stage terminal carcinoma which is metastatic at this point in time. Family has not made a decision regarding comfort care measures. In my opinion, this patient will not be able to tolerate any form of treatment based on her age and comorbidities and advanced lung cancer. Awaiting pericardial fluid cytology and pericardial biopsy results. Objective - Vital Signs Vital signs: Vital Signs Temp 97.6 F 02/26/21 07:43 Pulse 77 02/26/21 09:45 Resp 22 02/26/21 07:45 BP 106/68 02/26/21 07:43 Pulse Ox 93 L 02/26/21 09:38 Intake & Output 02/25/21 02/26/21 02/26/21 18:59 06:59 18:59 Intake Total 520 10 240 Output Total 10 70 10 Balance 510 -60 230 Intake: IV 10 Invasive Line 1 10 Intake, IV Titration 400 Amount Sodium Chloride 0.9% 1, 400 000 ml @ 50 mls/hr IV . Q20H [facility] Rx#:[id number] Oral 120 240 Output: Chest Tube Drainage 10 70 10 Chest Tube Mediastinal 10 70 10 Other: Voiding Method Diaper Diaper Diaper Incontinent Incontinent Incontinent # Voids 1 2 # Bowel Movements 1 - Exam GENERAL EXAM: Alert, 80-year-old frail looking white female, shortness of breath, anxious, diaphoretic, tachypneic, having recurrent cough, ineffective cough unable to bring up much of sputum. Seems to be confused at this point in time. Family history bedside. HEAD: Normocephalic/atraumatic. EYES: Normal reaction of pupils, equal size. Conjunctiva pink, sclera white. NOSE: Clear with pink turbinates. THROAT: No erythema or exudates. NECK: No masses, no JVD, no thyroid enlargement, no adenopathy. CHEST: No chest wall deformity. Symmetrical expansion. Subxiphoid chest tube present with small amount of serous output in the atrium LUNGS: Equal air entry with diminished breath sounds at bilateral bases, shortness of breath, tachypneic, diminished breath on the lung bases bilaterally more so on the right. Trachea is shifted to the left. CVS: Regular rate and rhythm, normal S1 and S2, no gallops, no murmurs, no rubs ABDOMEN: Soft, nontender. No hepatosplenomegaly, normal bowel sounds, no guarding or rigidity. EXTREMITIES: No clubbing, no edema, no cyanosis, 2+ pulses and upper and lower extremities. MUSCULOSKELETAL: Muscle strength and tone normal. SPINE: No scoliosis or deformity SKIN: No rashes CENTRAL NERVOUS SYSTEM: Alert and oriented -2. No focal deficits, tone is normal in all 4 extremities. PSYCHIATRIC: Alert and oriented -2. Appropriate affect. Intact judgment and insight. - Labs CBC & Chem 7: 02/26/21 07:25 02/26/21 07:25 Labs: Abnormal Lab Results - Last 24 Hours (Table) 02/26/21 02/26/21 Range/Units 07:25 07:25 Lymphocytes # 0.8 L (1.0-4.8) k/uL Sodium 135 L (137-145) mmol/L Potassium 3.4 L (3.5-5.1) mmol/L Glucose 113 H (74-99) mg/dL Microbiology - Last 24 Hours (Table) 02/23/21 15:12 Anaerobic Culture - Preliminary Pericardial Fluid 02/22/21 16:55 Blood Culture - Preliminary Blood No Growth after 72 hours 02/23/21 15:12 Gram Stain - Preliminary Pericardial Fluid Body Fluid Culture - Preliminary Assessment and Plan Plan: #1. Suspected Lung cancer, with metastasis, currently undergoing evaluation at the [facility]. Patient presented to us with a large pericardial effusion and the patient underwent a pericardial window. Meanwhile, the CAT scan of the chest shows a large mediastinal mass causing mass effect on the trachea and esophagus. The patient has metastatic disease with hepatic involvement and hepatic metastases. She is extremely debilitated, weak, emaciated, has a weak cough, unable to bring of breath or secretions in her condition has gotten worse significant over the past 24 hours. Repeat chest x- ray shows also a persistent right-sided pleural effusion. Her condition is terminal. The patient has and stage carcinoma which is most likely of a lung pr imary. Pericardial fluid cytology and pathology down is not bacteria. #2. Generalized pericardial effusion, post pericardial window on 02/23/2021, 400 mL of pericardial fluid was removed and sent for cytology cultures and analysis, mediastinal chest tube remains in place , the pericardial tube is still in place and it has drained approximately 150s over the past 24 hours. #3. Bilateral pleural effusions, extensive mediastinal and bronchial adenopathy related to underlying history of metastatic lung cancer #4. Former smoker #5. Hypertension #6. Dyslipidemia #7. Peripheral vascular disease #8. Diastolic heart failure #9. Dementia #10. History of CVA/TIA Plan: Awaiting pericardial fluid cytology results, meanwhile the patient's condition decompensated and the patient has end-stage terminal carcinoma which is metastatic at this point. I made recommendations to the family to proceed with comfort care measures and hospice. Family has not made up their mind.. A thoracentesis may not help a whole lot knowing that the amount of pleural fluid is relatively small and the patient has a large mediastinal mass which is causing mass effect on the trachea and main airways. Her performance and functional status is extremely poor. I'm not sure she'll be a candidate for any further treatment. Family will make it final decision , extremely poor prognosis
[2021-02-26] MEDS: ALPRAZolam 0.5 MG TAB PO PRN ×2 (18:08→23:52)
--- NOTE | 2021-02-27 01:00 | P.PN ---
Subjective Progress Note Date: 02/26/21 Principal diagnosis: Large pericardial effusion Ms. Kingston is an 80-year-old female with large pericardial effusion without evidence of pericardial tamponade and underwent pericardial window by cardiothoracic surgery, pending biopsy results. On 02/25/2021 -patient is seen and examined at the bedside. Patient still has chest tube in place and appears to be slightly confused. Patient also has a mediastinal mass, patient had a limited echo done yesterday at bedside showing overall left ventricular ejection fraction to be between 40 to 45% and right ventricular systolic function is moderately impaired. She had 110 mL of output, thin serosanguineous drainage in the last 24 hours. As per discussion with nursing staff no acute events reported overnight. Patient is pleasantly confused a review of systems could not be done. On reviewing the patient's vitals temperature of 98, heart rate 88, respiratory 24, saturating at 93% on 3 L with blood pressure 110/73. No new labs from this morning. On 02/26/2021 -overnight patient became very restless and was having difficulty in breathing. Patient's daughter visited her this morning CT surgery and pulmonary team discussed the patient's poor prognosis and eventually they decided hospice care. Patient is comfortably lying in bed appears to be no acute distress. She seems to be resting comfortably. On reviewing the vitals temperature of 97.9, heart rate 81, respiratory rate 20, blood pressure 131/67, saturating at 98% on 3 L of oxygen. Patient labs have been reviewed Patient's medications have been reviewed. Objective - Vital Signs Vital signs: Vital Signs Temp 97.6 F 02/26/21 07:43 Pulse 81 02/26/21 13:40 Resp 20 02/26/21 13:40 BP 106/68 02/26/21 07:43 Pulse Ox 93 L 02/26/21 09:38 Intake & Output 02/25/21 02/26/21 02/26/21 18:59 06:59 18:59 Intake Total 520 10 240 Output Total 10 70 20 Balance 510 -60 220 Intake: IV 10 Invasive Line 1 10 Intake, IV Titration 400 Amount Sodium Chloride 0.9% 1, 400 000 ml @ 50 mls/hr IV . Q20H [facility] Rx#:[id number] Oral 120 240 Output: Chest Tube Drainage 10 70 20 Chest Tube Mediastinal 10 70 20 Other: Voiding Method Diaper Diaper Diaper Incontinent Incontinent Incontinent # Voids 1 2 # Bowel Movements 1 - Exam GEN. APPEARANCE: alert, in no apparent distress RESPIRATORY EXAM: Bilateral BS ,slightest diminished at the bases, No wheezes or crackles. CARDIOVASCULAR EXAM: S1-S2 heard. No additional sounds. Chest tube in place with serosanginous drainage GI/ABDOMINAL EXAM: soft, normal bowel sounds. EXTREMITIES EXAM: No edema. NEUROLOGICAL EXAM: alert, oriented X1-2 , no focal deficits. PSYCHIATRIC EXAM: normal affect, normal mood SKIN EXAM: No rash. - Labs CBC & Chem 7: 02/26/21 07:25 02/26/21 07:25 Labs: Abnormal Lab Results - Last 24 Hours (Table) 02/26/21 02/26/21 Range/Units 07:25 07:25 Lymphocytes # 0.8 L (1.0-4.8) k/uL Sodium 135 L (137-145) mmol/L Potassium 3.4 L (3.5-5.1) mmol/L Glucose 113 H (74-99) mg/dL Microbiology - Last 24 Hours (Table) 02/23/21 15:12 Anaerobic Culture - Preliminary Pericardial Fluid 02/22/21 16:55 Blood Culture - Preliminary Blood No Growth after 72 hours 02/23/21 15:12 Gram Stain - Preliminary Pericardial Fluid Body Fluid Culture - Preliminary Assessment and Plan Assessment: ASSESSMENT Large pericardial effusion with possible malignancy secondary to lung cancer Status post pericardial effusion and chest tube drainage Acute UTI with sepsis present on admission Acute metabolic encephalopathy multifactorial Possible stage IV lung cancer with mets and mediastinal lymphadenopathy History of chronic degenerative joint disease Remote history of nicotine dependence Mild protein calorie malnutrition Bilateral pleural effusion and atelectasis Liver mass on CAT scan Full code PLAN : Overall prognosis is guarded secondary to multiple complex medical conditions,patient's family decided to go with hospice care. Hospice consult i nitiated.
[2021-02-27] MEDS: ALBUTEROL NEBULIZED 2.5 MG/3 ML INHALATION PRN ×2 (04:19→09:05)
[2021-02-27] MEDS: ALPRAZolam 0.5 MG TAB PO PRN (05:16)
[2021-02-27] MEDS: KETOROLAC 15 MG/ML 1 ML VIAL IVP PRN (05:21)
[2021-02-27] MEDS: SODIUM CHLORIDE 0.9% 1,000 ML IV SCH (07:52)
[2021-02-27 08:02] VITALS: BP 102/68; RESP 26; TEMP 98.8
[2021-02-27 09:17] VITALS: PULSE 83
--- NOTE | 2021-02-27 11:21 | P.PN ---
Subjective Progress Note Date: 02/27/21 Principal diagnosis: Large pericardial effusion with mediastinal mass, bilateral pleural effusions. Recent suspected diagnosis of stage IV suspected metastatic lung cancer, hypert ension, dyslipidemia, peripheral vascular disease, diastolic heart failure, history of CVA/TIA, remote history of tobacco dependence, chronic back pain. POD #4 subxiphoid pericardial window with removal of 400 mL straw-colored fluid which was sent for pathology and culture. The patient is seen in follow-up today 02/27/2021 at her bedside on the cardiac stepdown unit. The patient thought her is present at her bedside, the patient's family has decided to make their family member hospice due to her poor prognosis. The subxiphoid chest tube remains in place to water seal. No air leak is present. Draining scant serosanguineous drainage. Objective - Vital Signs Vital signs: Vital Signs Temp 98.8 F 02/27/21 08:00 Pulse 83 02/27/21 09:16 Resp 26 H 02/27/21 08:00 BP 102/68 02/27/21 08:00 Pulse Ox 89 L 02/27/21 09:16 Intake & Output 02/26/21 02/27/21 02/27/21 18:59 06:59 18:59 Intake Total 240 Output Total 30 730 Balance 210 -730 Intake: Oral 240 Output: Chest Tube Drainage 30 30 Chest Tube Mediastinal 30 30 Urine 700 Other: Voiding Method Diaper Diaper Incontinent Incontinent External Catheter # Voids 1 - Exam CONSTITUTIONAL: Lying in bed on the medical surgical unit, appears tachypneic, and lethargic. HEENT: Neck is supple, no JVD, no lymphadenopathy. RESPIRATORY: Lungs sounds with few scattered rhonchi throughout, diminished bilateral bases. Respirations are symmetrical and tachypneic. Currently on 6 L nasal cannula with oxygen saturations 98%. CARDIOVASCULAR: Regular rhythm and rate. S1 and S2 present, negative for S3, gallop or murmur. Palpable peripheral pulses bilaterally. GASTROINTESTINAL: Abdomen soft, nontender, nondistended. Active bowel sounds p resent 4 quadrants. No guarding or rigidity. GENITOURINARY: Continues to void, incontinence. INTEGUMENTARY: Skin is warm and dry with no evidence of clubbing or cyanosis. Subxiphoid incision is clean, dry and approximated. No drainage or redness is present. NEUROLOGIC: Unable to accurately assess at this time as the patient is lethargic. MUSKULOSKELETAL: Unable to accurately assess at this time as the patient is lethargic, although she is moving all 4 extremities. PSYCHIATRIC: Unable to accurately assess at this time as the patient is lethargic. INVASIVE LINES AND TUBES: Subxiphoid chest tube is in place and to waterseal. No air leak is present. 60 mL output in the last 24 hours. - Allied health notes Allied health notes reviewed: nursing - Labs CBC & Chem 7: 02/26/21 07:25 02/26/21 07:25 Labs: Microbiology - Last 24 Hours (Table) 02/22/21 16:55 Blood Culture - Preliminary Blood No Growth after 96 hours 02/23/21 15:12 Gram Stain - Preliminary Pericardial Fluid Body Fluid Culture - Preliminary Assessment and Plan Assessment: 1. Large global pericardial effusion, status post subxiphoid pericardial window 2. Recent probable diagnosis of stage IV metastatic lung cancer, await pathology 3. Previous tobacco dependence 4. Chronic back pain Plan: 1. Subxiphoid chest tube removed without incident. 4 x 4 gauze to covered, impregnated Vaseline gauze to cover and secured with tape. 2. Pericardial biopsy pathology results remain pending. 3. The patient is on hospice now and we will sign off, please reconsult if needed. Time with Patient: Less than 30
== END 2021-02-27 09:38 | disposition hospice, inpatient (51) | DRG 270 ==
LOC: EC 09:55 → 3SCARD 13:17 → 4SSUR 02-26 19:54
PROVIDERS: ADMIT Internal Medicine; ATTEND Internal Medicine
PROC: 0W9D00Z Drainage of Pericardial Cavity with Drainage Device, Open Approach (ICD-10-PCS; principal; 2021-02-23 13:00)
DX: I31.3 Pericardial effusion (noninflammatory) (principal); G93.41 Metabolic encephalopathy; A41.9 Sepsis, unspecified organism; E44.1 Mild protein-calorie malnutrition; I50.32 Chronic diastolic (congestive) heart failure; J98.11 Atelectasis; N39.0 Urinary tract infection, site not specified; C34.90 Malignant neoplasm of unspecified part of unspecified bronchus or lung; C78.7 Secondary malignant neoplasm of liver and intrahepatic bile duct; C79.31 Secondary malignant neoplasm of brain; R64 Cachexia; Z68.1 Body mass index [BMI] 19.9 or less, adult; I31.4 Cardiac tamponade; E83.52 Hypercalcemia; E78.5 Hyperlipidemia, unspecified; Z51.5 Encounter for palliative care; Z66 Do not resuscitate; G89.29 Other chronic pain; H91.90 Unspecified hearing loss, unspecified ear; I11.0 Hypertensive heart disease with heart failure; I27.20 Pulmonary hypertension, unspecified; J84.10 Pulmonary fibrosis, unspecified; I73.9 Peripheral vascular disease, unspecified; J44.9 Chronic obstructive pulmonary disease, unspecified; F03.90 Unspecified dementia, unspecified severity, without behavioral disturbance, psychotic disturbance, mood disturbance, and anxiety; M19.90 Unspecified osteoarthritis, unspecified site; R09.02 Hypoxemia; S74.00XA Injury of sciatic nerve at hip and thigh level, unspecified leg, initial encounter; Z79.82 Long term (current) use of aspirin; Z79.899 Other long term (current) drug therapy; Z80.3 Family history of malignant neoplasm of breast; Z86.73 Personal history of transient ischemic attack (TIA), and cerebral infarction without residual deficits; Z87.891 Personal history of nicotine dependence; Z82.0 Family history of epilepsy and other diseases of the nervous system
CPT/HCPCS: 36415; 71045; 71250; 74176; 80048; 80053; 81001; 82330; 82945; 83615; 83735; 83970; 84157; 84443; 84484; 85025; 85027; 85610; 85730; 86300; 86850; 86900; 86901; 87040; 87070; 87075; 87205; 87252; 87496; 87498; 87529; 87798; 88305; 93005; 93308; 94640; 94760; 99285

== ENCOUNTER 2021-02-27 09:08 | Inpatient (IN) | payer MEDICAID ==
[2021-02-27] MEDS ORDERED: ONDANSETRON 4 MG/2 ML VIAL IVP PRN (09:14)
[2021-02-27] MEDS ORDERED: DRY MOUTH SPRAY 44.3 SPRAY/44.3 ML SPRAY MUCOUS MEM PRN (09:14)
[2021-02-27] MEDS ORDERED: LORazepam 2 MG/ML INJ IV PRN (09:14)
[2021-02-27] MEDS ORDERED: ACETAMINOPHEN SUPPOSITORY 650 MG SUPP RECTAL PRN (09:14)
[2021-02-27] MEDS ORDERED: ATROPINE OPHTH SOLN 1% 5ML BTL SUBLINGUAL PRN (09:14)
[2021-02-27] MEDS ORDERED: SCOPOLAMINE 1.5MG/72HR PATCH TRANSDERM SCH (09:15)
[2021-02-27] MEDS ORDERED: ALBUTEROL NEBULIZED 2.5 MG/3 ML INHALATION PRN (09:22)
[2021-02-27] MEDS ORDERED: MORPHINE SULFATE (100 MG/2 ML) 100 MG in SODIUM CHLORIDE 0.9% 100 ML IV SCH (10:00)
[2021-02-27] MEDS ORDERED: MORPHINE SULFATE 2 MG/ML SYRINGE IVP PRN (13:33)
[2021-02-28 07:46] VITALS: RESP 20
[2021-02-28 15:05] VITALS: TEMP 98
[2021-03-01 00:12] VITALS: PULSE 123
--- NOTE | 2021-03-01 01:44 | P.HPIM ---
History of Present Illness Please consider this combined H&P and discharge summary Diagnoses: Comfort care, end of life care Large pericardial effusion with possible malignat secondary to lung cancer Status post pericardial effusion and chest tube drainage Acute UTI with sepsis present on admission Acute metabolic encephalopathy multifactorial Possible stage IV lung cancer with mets and mediastinal lymphadenopathy History of chronic degenerative joint disease Remote history of nicotine dependence Mildto moderate protein calorie malnutrition Bilateral pleural effusion and atelectasis Liver mass on CAT scan Hospital course: Ms. Kingston is an 80-year-old female with large pericardial effusion without evidence of pericardial tamponade and underwent pericardial window by cardiothoracic surgery, patient had chest tube placed, evaluated by pulmonary/critical care team and cardiothoracic surgery for prolonged case closely, however overnight she became restless and more difficult to breathe, patient was already accepted to hospice care yesterday. Today she was lying in bed comfortable, 2 daughters at bedside with think she is comfortable but that time she months, she is on morphine and other comfort measures. Discussed the case with hospice nurse and eventually on 02/28, this referred to [facility] for more details Physical exam prior to expiration Problems and management plan were discussed with the patient and he verbalized understanding and acceptance Patient was found stable and can be discharged home however he needs follow-up as an outpatient. Patient was instructed to follow up with PCP within one week and patient agrees Physical exam -Gen: patient is a candidate, unresponsive, no distress. Looks comfortable CVS: S1-S2, RRR, no murmur -Lungs: B/L CTA, bilateral crepitation and wheezing -Abdomen: soft, no distention, no tenderness, positive bowel sounds. An aortic Extremity: no leg edema or induration Time spent more than 35 minutes Past Medical History Past Medical History: CVA/TIA, Dementia, Hyperlipidemia Additional Past Medical History / Comment(s): back pain; hard of hearing; History of Any Multi-Drug Resistant Organisms: None Reported Past Surgical History: Appendectomy Additional Past Surgical History / Comment(s): sciatic nerve surgery Past Anesthesia/Blood Transfusion Reactions: No Reported Reaction Past Psychological History: No Psychological Hx Reported Smoking Status: Former smoker Past Alcohol Use History: None Reported Past Drug Use History: None Reported - Past Family History Mother Family Medical History: Dementia Sister(s) Family Medical History: Cancer Additional Family Medical History / Comment(s): breast cancer Medications and Allergies Home Medications Medication Instructions Recorded Confirmed Type Aspirin 81 mg PO QAM 02/04/20 02/27/21 History Atorvastatin [Lipitor] 40 mg PO DAILY 02/04/20 02/27/21 History Metoprolol Succinate [Toprol XL] 50 mg PO QAM 02/04/20 02/27/21 History Albuterol Inhaler [Ventolin Hfa 1 - 2 puff INHALATION RT-QID PRN 02/21/21 02/27/21 History Inhaler] Escitalopram [Lexapro] 5 mg PO DAILY 02/21/21 02/27/21 History Furosemide [Lasix] 20 mg PO DAILY 02/21/21 02/27/21 History Allergies Allergy/AdvReac Type Severity Reaction Status Date / Time No Known Allergies Allergy Verified 02/27/21 10:34 Physical Exam Vitals: Vital Signs Temp Pulse Resp Pulse Ox 02/28/21 07:45 97.7 F 88 20 91 L 02/28/21 05:58 16 02/28/21 02:12 98.0 F 87 21 90 L 02/27/21 20:00 83 23 93 L 02/27/21 19:35 23 02/27/21 16:50 82 32 H Intake and Output 02/27/21 02/28/21 02/28/21 22:59 06:59 14:59 Intake Total Output Total 300 Balance -300 504 Intake: Intake, IV Titration 18 Amount Morphine Sulfate (100 mg/ 18504 2 ml) 100 mg In Sodium Chloride 0.9% 100 ml @ 1 MG/HR 1.02 mls/hr IV . Q24H [facility] Rx#:[id number] Output: Urine 300 Other: Voiding Method External Catheter
== END 2021-02-28 22:55 | disposition expired | DRG 951 ==
LOC: 4SSUR 09:44
PROVIDERS: ADMIT Internal Medicine; ATTEND Internal Medicine
DX: Z51.5 Encounter for palliative care (principal); G93.41 Metabolic encephalopathy; E44.0 Moderate protein-calorie malnutrition; I31.3 Pericardial effusion (noninflammatory); J90 Pleural effusion, not elsewhere classified; J98.11 Atelectasis; C34.90 Malignant neoplasm of unspecified part of unspecified bronchus or lung; C79.89 Secondary malignant neoplasm of other specified sites; Z66 Do not resuscitate; Z68.21 Body mass index [BMI] 21.0-21.9, adult; E78.5 Hyperlipidemia, unspecified; F03.90 Unspecified dementia, unspecified severity, without behavioral disturbance, psychotic disturbance, mood disturbance, and anxiety; M54.9 Dorsalgia, unspecified; R59.0 Localized enlarged lymph nodes; H91.90 Unspecified hearing loss, unspecified ear; Z87.891 Personal history of nicotine dependence; Z79.82 Long term (current) use of aspirin; Z79.899 Other long term (current) drug therapy; Z80.3 Family history of malignant neoplasm of breast; Z86.73 Personal history of transient ischemic attack (TIA), and cerebral infarction without residual deficits; Z82.0 Family history of epilepsy and other diseases of the nervous system; Z90.49 Acquired absence of other specified parts of digestive tract; Z98.890 Other specified postprocedural states